=== PATIENT | male | born 1960 | race Caucasian/White ===

== ENCOUNTER 2018-06-06 17:24 | Inpatient (IN) | payer MEDICARE, OTHER ==
[~2018-06-06] VITALS: Ht 177.8 cm; Wt 93.4 kg
[~2018-06-06 17:24] MED LIST: ASPI-817 PO; ATOR40TA68 PO; CARV12.579 PO; CARV12.598 PO; FURO-110 PO; GABA300C PO; GABA300C16 PO; INSU100C SC; INSU100V23 SC; LANT3I SC; NAPR375T PO; NP.1OP15 BOTH EYES; SPIR25TA PO; TRAZ150T65 PO
[2018-06-06] MEDS: SODIUM POLYSTYRENE 15 GM KIT (POWDER + SORBITOL) PO STA ×2 (18:31→19:06)
[2018-06-06] MEDS ORDERED: ALBUTEROL 0.5% (NEB) 2.5 MG/0.5 ML AMP INH STA (18:31)
[2018-06-06] MEDS ORDERED: CA CHLORIDE 10% 10 ML SYRINGE IV STA (18:31)
[2018-06-06] MEDS ORDERED: NA BICARBONATE 8.4% 50 ML SYG IV STA (18:31)
[2018-06-06] MEDS ORDERED: INSULIN REGULAR, HUMAN 100 UNIT/1 ML 3ML VIAL IVP STA (18:31)
--- NOTE | 2018-06-06 18:56 | ERD ---
ER Documentation Chief Complaint Chief Complaint HYPERGLYCEMIA, LAST BLOOD SUGAR 285. MISSED DIALYSIS TODAY. HPI Patient is a 57-year-old male with coronary disease, hypertension, diabetes, and dialysis who presents feeling weak and sick. He feels weak all over. He had subjective fever but did not take his temperature. He feels some midsternal chest pain. He missed dialysis today because he did not feel well. He did have dialysis on Wednesday. Upon review of old medical records this is the patient's third visit to the ER since 2013. ROS All systems reviewed and are negative except as per history of present illness. Medications Home Meds Reported Medications Trazodone Hcl* (Trazodone Hcl*) 150 Mg Tablet, 150 MG PO HS, TAB 12/14/13 Naphazoline Hcl* (Ak-Con*) 0.1% - 15 ML Drops Opht, 1 DROP BOTH EYES BID, EA 12/14/13 Gabapentin* (Neurontin*) 300 Mg Capsule, 300 MG PO TID, CAP 12/14/13 Spironolactone* (Aldactone*) 25 Mg Tablet, 25 MG PO DAILY, TAB 12/14/13 Naproxen* (Naprosyn*) 375 Mg Tablet, 375 MG PO BID, TAB 12/14/13 Aspirin* (Aspirin* EC) 81 Mg Tablet.dr, 81 MG PO DAILY, TAB 12/14/13 Atorvastatin* (Atorvastatin*) 40 Mg Tablet, 40 MG PO HS, TAB 12/14/13 Furosemide* (Lasix*) 20 Mg Tablet, 20 MG PO DAILY, TAB 12/14/13 Insulin Glargine* (Lantus*) 100 Unit/Ml Soln, 30 UNIT SC HS, EA 12/14/13 Insulin Lispro (Humalog) 100 U/Ml Cartridge, 10 UNITS SC TID W/ MEALS, EA 12/14/13 Carvedilol* (Coreg*) 12.5 Mg Tablet, 12.5 MG PO BID, TAB 12/14/13 Insulin Regular, Human* (Novolin R*) 100 U/Ml Vial, 0 SC SLIDING SCALE AC, VIAL 12/13/13 Insulin Glargine* (Lantus*) 100 Unit/Ml Soln, 25 UNIT SC HS, EA 12/13/13 Atorvastatin* (Atorvastatin*) 40 Mg Tablet, 40 MG PO, TAB 12/13/13 Carvedilol* (Carvedilol*) 12.5 Mg Tablet, 12.5 MG PO, TAB 12/13/13 Spironolactone* (Aldactone*) 25 Mg Tablet, 25 MG PO, TAB 12/13/13 Gabapentin* (Gabapentin*) 300 Mg Capsule, 300 MG PO, CAP 12/13/13 Allergies Allergies: Coded Allergies: Amoxicillin (Verified Allergy, Unknown, 12/13/13) PMhx/Soc History of Surgery: Yes (CABG JUNE 2001 & FEB 2013) Anesthesia Reaction: No Hx Neurological Disorder: No Hx Respiratory Disorders: No Hx Alcohol Use: No Hx Substance Use: No Hx Tobacco Use: Yes Smoking Status: Never smoker FmHx Family History: diabetes Physical Exam Vitals Vital Signs Date Temp Pulse Resp B/P (MAP) Pulse Ox O2 O2 Flow FiO2 Time Delivery Rate 06/06/18 98.7 104 20 135/61 88 17:32 (85) Physical Exam Const: No acute distress Head: Atraumatic Eyes: Normal Conjunctiva ENT: Normal External Ears, Nose and Mouth. Neck: Full range of motion. No meningismus. Resp: Clear to auscultation bilaterally Cardio: Tachycardic rate without murmur Abd: Soft, non tender, non distended. Normal bowel sounds Skin: Pale skin Back: No midline or flank tenderness Ext: No cyanosis, or edema Neur: Awake and alert Psych: Normal Mood and Affect Result Diagram: 06/06/187 06/06/181756 Results 24 hrs Laboratory Tests Test 06/06/18 17:30 06/06/18 17:41 06/06/18 17:57 Bedside Glucose 285 mg/dL Blood Gas Specimen Source Blood venous Arterial Blood Date Drawn 06/06/2018 5:55:14 PM Arterial Blood Gas VENOUS LINE Puncture Site Bradley Test N/A Venous Blood pH 7.356 Venous Blood pCO2 52.1 mmHG (Temp Corrected) Venous Blood pO2 19.8 mmHG (Temp Corrected) Venous Blood HCO3 28.5 mmol/L Venous Blood Oxygen 24.4 mmHG Saturation Venous Blood Base Excess 2.4 mmol/L Venous Blood Total 10.0 g/dl Hemoglobin Venous Blood Oxyhemoglobin 23.8 % Venous Blood Methemoglobin 0.7 % Carboxyhemoglobin 1.9 % Blood Gas Temperature 37.0 C Blood Gas Modality ROOM AIR FiO2 21.0 % Blood Gas Critical Value B SHANAE ALCALA Read Back Blood Gas Notified Whom Destinee MAYES TYRE FITTER Blood Gas Notified Time 06/06/2018 6:02:46 PM White Blood Count 15.4 10^3/ul Red Blood Count 3.49 10^6/ul Hemoglobin 9.2 g/dl Hematocrit 31.3 % Mean Corpuscular Volume 89.7 fl Mean Corpuscular Hemoglobin 26.4 pg Mean Corpuscular 29.4 g/dl Hemoglobin Concent Red Cell Distribution Width 17.0 % Platelet Count 309 10^3/UL Mean Platelet Volume 9.0 fl Immature Granulocytes % 0.800 % Neutrophils % 85.2 % Lymphocytes % 6.6 % Monocytes % 6.4 % Eosinophils % 0.5 % Basophils % 0.5 % Nucleated Red Blood Cells % 0.0 /100WBC Immature Granulocytes # 0.130 10^3/ul Neutrophils # 13.1 10^3/ul Lymphocytes # 1.0 10^3/ul Monocytes # 1.0 10^3/ul Eosinophils # 0.1 10^3/ul Basophils # 0.1 10^3/ul Nucleated Red Blood Cells # 0.0 10^3/ul Sodium Level 140 mmol/L Potassium Level 7.4 mmol/L Chloride Level 93 mmol/L Carbon Dioxide Level 26 mmol/L Anion Gap 21 Blood Urea Nitrogen 94 mg/dl Creatinine 9.97 mg/dl Est Glomerular Filtrat 5 mL/min Rate mL/min Glucose Level 259 mg/dl Calcium Level 8.5 mg/dl Phosphorus Level 9.3 mg/dl Magnesium Level 2.4 mg/dl Troponin I 0.182 ng/ml Current Medications Medications Dose Sig/Seamus Start Time Status Last (Trade) Ordered Route PRN Stop Time Admin Dose Reason Admin Sodium 30 gm ONCE STAT 06/06/18 DC Polystyrene PO 18:31 Sulfonate 06/06/18 18:32 (Kayexelate 15 Gm Kit (Powder+Sorbi kimberly)) Albuterol 15 mg ONCE STAT 06/06/18 DC (Proventil INH 18:31 0.5% (Neb)) 06/06/18 18:32 Sodium 50 ml ONCE STAT 06/06/18 DC Bicarbonate IV 18:31 (Na Bicarb 06/06/18 18:32 8.4% Syg) Calcium 1,000 mg ONCE STAT 06/06/18 DC Chloride IV 18:31 (Ca Chloride 06/06/18 18:32 10% Syg) Insulin 10 unit ONCE STAT 06/06/18 DC Human IVP 18:31 Regular 06/06/18 18:32 (Humulin R) Dextrose ONCE PRN 06/06/18 (D50w IV DECREASED 19:00 Syringe) GLUCOSE Aspirin 162 mg ONCE ONCE 06/06/18 (Aspirin) PO 19:00 06/06/18 19:01 Ondansetron 4 mg ER BRIDGE 06/06/18 HCl (Zofran PRN IV 19:00 Inj) NAUSEA/VOMITI 06/07/18 18:59 NG 650 mg ER BRIDGE 06/06/18 Acetaminophen PRN PO 19:00 (Tylenol .MILD PAIN 06/07/18 18:59 Tab) 1-3 OR TEMP Procedures/MDM EKG read by me: Rate/Rhythm: Left bundle branch block with tachycardia Intervals: Normal Impression: Left bundle branch block with tachycardia with peaked T waves consistent with hyperkalemia but negative for Sgarbossa criteria Chest x-ray read by radiology. Smoking Cessation Therapy: Pt. was lectured for greater than 3 minutes on the health risks of continued smoking and the benefits of cessation. Patient is a 57-year-old male with multiple, but he is presents with hyper kalemia. He was found to have a potassium of 7.4 with peaked T waves. He was given calcium, bicarbonate, albuterol, insulin, glucose, and Kayexalate. The patient was also found to have a positive troponin in the setting of chronic renal failure and was given aspirin. The patient will be admitted to the care of Dr. Montez to a telemetry bed. He will need dialysis. Critical Care: Time: 35 minutes excluding all billable procedures. Treatments/Evaluations: Close monitoring and treatment of unstable vital signs, cardiorespiratory, and neurologic status, while maintaining tight balance of fluid, respiratory, and cardiac interventions. Departure Diagnosis: Primary Impression: Hyperkalemia Additional Impression: NSTEMI (non-ST elevated myocardial infarction) Condition: Serious RADHA JOLLY MD Jun 06, 2018 18:56
[2018-06-06] MEDS ORDERED: ONDANSETRON 4 MG INJ IV PRN ×2 (19:00→20:30)
[2018-06-06] MEDS ORDERED: ASPIRIN 81 MG TAB PO ONE (19:00)
[2018-06-06] MEDS ORDERED: ACETAMINOPHEN 325 MG TAB PO PRN ×2 (19:00→20:30)
[2018-06-06] MEDS ORDERED: DEXTROSE 50% 50 ML SYRINGE IV PRN (19:00)
[2018-06-06] MEDS ORDERED: BISACODYL (EC) 5 MG TAB PO PRN (20:30)
[2018-06-06] MEDS ORDERED: morphine 2 MG INJ IV PRN (20:30)
[2018-06-06] MEDS ORDERED: NACL 0.9% 3 ML SYG IV SCH (20:30)
[2018-06-06] MEDS ORDERED: DOCUSATE SODIUM 100 MG CAP PO PRN (20:30)
[2018-06-06] MEDS ORDERED: NITROGLYCERIN (SL) 0.4 MG TAB SL PRN (20:30)
[2018-06-06] MEDS ORDERED: FERR325T5 PO (21:49)
[2018-06-06] MEDS: HEPARIN 5,000 UNIT/1 ML VIAL SC SCH (22:31)
[2018-06-06 23:11] VITALS: PULSE 101
[2018-06-06 23:22] VITALS: Ht 177.8 cm; Wt 93.4 kg
--- NOTE | 2018-06-06 23:48 | HP ---
Date/Time of Note Date/Time of Note DATE: 06/06/18 TIME: 23:48 Assessment/Plan VTE Prophylaxis SCD applied (from Nsg): Yes Pharmacological prophylaxis: NA/contraindicated Pharm contraindication: low risk/ambulating Lines/Catheters IV Catheter Type (from Nrsg): Saline Lock Assessment/Plan Hospital Course This is a 57-year-old male being admitted to the telemetry floor for: #1 chest pain: Rule out ACS versus congestion from volume overload: We will trend cardiac enzymes initial troponin was 0.182. EKG did show peaked T waves and left bundle branch block with a negative scar posterior criteria. Elevated troponin likely in the setting of volume overload and ESRD. Nonetheless we will trend cardiac enzymes. Patient did receive aspirin in the emergency department. Cardiology consultation. Echocardiogram #2 hyperkalemia: With peaked T waves. Patient did receive Kayexalate, albute rol, insulin and dextrose as well as calcium gluconate in the emergency department. Will repeat BMP to assess potassium. Will consult Dr. Ashford for stat hemodialysis. #3 uremia with volume overload: Also with hyperkalemia. Patient did receive treatment for hyperkalemia as per #2. Will consult Dr. Ashford for stat dialysis. Patient reports missed dialysis on Wednesday, he does report that he is compliant. Avoid nephrotoxic agents. Need to confirm patient's home medications #4 diabetes mellitus: We will need to confirm patient's home medications, will check hemoglobin A1c, insulin sliding scale #5 coronary artery disease: Again we will need to confirm patient's home medications and resume #6 tobacco use: Nicotine patch #7: Normocytic anemia: Likely secondary to underlying end-stage renal disease. No signs of bleeding. Further management as per nephro. #8 DVT GI prophylaxis: SCDs, no GI prophylaxis indicated Further treatment strategy will be implemented as per the clinical course. Result Diagram: 06/06/18 1757 06/06/187 Results 24hrs Laboratory Tests Test 06/06/18 17:30 06/06/18 17:41 06/06/18 17:57 06/06/18 18:50 Bedside Glucose 285 H 239 H Blood Gas Blood venous Specimen Source Arterial Blood 06/06/2018 5:55:1 Date Drawn 4 PM Arterial Blood VENOUS LINE Gas Puncture Site Bradley Test N/A Venous Blood pH 7.356 Venous Blood pCO2 52.1 H (Temp Corrected) Venous Blood pO2 19.8 L (Temp Corrected) Venous Blood HCO3 28.5 Venous Blood 24.4 L Oxygen Saturation Venous Blood Base 2.4 Excess Venous Blood 10.0 Total Hemoglobin Venous Blood 23.8 Oxyhemoglobin Venous Blood 0.7 Methemoglobin Carboxyhemoglobin 1.9 Blood Gas 37.0 Temperature Blood Gas ROOM AIR Modality FiO2 21.0 Blood Gas B SHANAE ALCALA Critical Value Read Back [facility] Notified Whom Blood Gas 06/06/2018 6:02:4 Notified Time 6 PM White Blood Count 15.4 #H Red Blood Count 3.49 L Hemoglobin 9.2 #L Hematocrit 31.3 L Mean Corpuscular 89.7 Volume Mean Corpuscular 26.4 L Hemoglobin Mean Corpuscular 29.4 L Hemoglobin Concen t Red Cell 17.0 #H Distribution Width Platelet Count 309 Mean Platelet 9.0 # Volume Immature 0.800 H Granulocytes % Neutrophils % 85.2 H Lymphocytes % 6.6 L Monocytes % 6.4 Eosinophils % 0.5 Basophils % 0.5 Nucleated Red 0.0 Blood Cells % Immature 0.130 H Granulocytes # Neutrophils # 13.1 H Lymphocytes # 1.0 Monocytes # 1.0 H Eosinophils # 0.1 Basophils # 0.1 Nucleated Red 0.0 Blood Cells # Sodium Level 140 Potassium Level 7.4 *H Chloride Level 93 L Carbon Dioxide 26 Level Anion Gap 21 H Blood Urea 94 H Nitrogen Creatinine 9.97 H Est Glomerular 5 L Filtrat Rate mL/min Glucose Level 259 H Calcium Level 8.5 Phosphorus Level 9.3 H Magnesium Level 2.4 Troponin I 0.182 *H Test 06/06/18 19:46 06/06/18 21:37 Bedside Glucose 269 H Sodium Level 140 Potassium Level 6.5 *H Chloride Level 95 L Carbon Dioxide 25 Level Anion Gap 20 H Blood Urea 99 H Nitrogen Creatinine 10.07 H Est Glomerular 5 L Filtrat Rate mL/min Glucose Level 213 Calcium Level 8.7 Creatine Kinase 58 Creatine Kinase 6.9 Index Creatinine Kinase 4.00 H MB (Mass) Troponin I 0.159 *H HPI/ROS Admit Date/Time Admit Date/Time Jun 06, 2018 at 18:49 Hx of Present Illness Chief complaint: Weakness and feeling sick This is a 57-year-old male with coronary disease, hypertension, diabetes, and end-stage renal disease dialysis Wednesday who presents feeling weak and sick. He feels weak all over. He had subjective fever but did not take his temperature. He feels some midsternal chest pain. He missed dialysis today because he did not feel well. He did have dialysis on Wednesday. Allergies: Amoxicillin Medications: See APR JAILENE Const: As per HPI Eyes : No pain discharge or redness or change in visual acuity ENT: No pain, sore throat, congestion, congestion, dysphagia or discharge Respiratory: As per HPI Cardiovascular: As per HPI GI : no change in appetite, abdominal pain, nausea, vomiting, diarrhea, constipation, or change in the color his stool Genitourinary: No dysuria, hematuria, flank pain , discharge or CVA tenderness Musculoskeletal: No joint pain, back pain, neck pain, restricted range of motion in neck or joints Skin: No rash, bruising or hives Neuro: No headache, dizziness, syncope, seizure, focal weakness Endocrine: No polyuria, polydipsia, temperature intolerance Psych: No hallucination, depression, anxiety or suicidal ideation PMH/Family/Social Past Medical History Diabetes mellitus, end-stage renal disease on hemodialysis Wednesday was a Wednesday, coronary artery disease, hypertension Medications Current Medications Dextrose (D50w Syringe) ONCE PRN IV DECREASED GLUCOSE Last administered on 06/06/18at 19:08; Admin Dose 50 ML; Start 06/06/18 at 19:00 IV Flush (NS 3 ml) 3 ml PER PROTOCOL IV ; Start 06/06/18 at 20:30 Ondansetron HCl (Zofran Inj) 4 mg Q6H PRN IV NAUSEA/VOMITING; Start 06/06/18 at 20:30 Nitroglycerin (Nitroglycerin (Sl Tab) 0.4 Mg) 1 tab Q5M PRN SL .CHEST PAIN; Start 06/06/18 at 20:30 Acetaminophen (Tylenol Tab) 650 mg Q6H PRN PO .PAIN 1-3 OR TEMP; Start 06/06/18 at 20:30 Morphine Sulfate (morphine) 2 mg Q4H PRN IV .PAIN 7-10; Start 06/06/18 at 20:30 Docusate Sodium (Colace) 100 mg Q12H PRN PO .CONSTIPATION; Start 06/06/18 at 20:30 Bisacodyl (Dulcolax) 5 mg DAILY PRN PO .CONSTIPATION; Start 06/06/18 at 20:30 Heparin Sodium (Porcine) (Heparin (5000 Units/1ml)) 5,000 unit Q8 SC Last ad ministered on 06/06/18at 22:31; Admin Dose 5,000 UNIT; Start 06/06/18 at 22:00 Coded Allergies: amoxicillin (Unverified Allergy, Unknown, 06/06/18) Past Surgical History Right chest permacath, left upper extremity AV fistula Family History Significant Family History: no pertinent family hx Social History Alcohol Use: none Smoking Status: Current every day smoker (1 pack/day) Drug Use: none Exam/Review of Systems Vital Signs Vitals Vital Signs Date Temp Pulse Resp B/P (MAP) Pulse Ox O2 O2 Flow FiO2 Time Delivery Rate 06/06/18 101 23:11 06/06/18 98.8 20 91/47 (62) 100 Nasal 2.0 22:00 Cannula Exam Exam General: Patient is currently lying in bed, he does not appear to be in any acute distress, but he does appear lethargic HEENT: Atraumatic, normocephalic. The pupils are equal, round and reactive. Extraocular motor are intact Neck: Supple with full range of motion. No rigidity or meningismus Chest: Nontender, right chest permacath with Lungs: Coarse breath sounds/rales bilaterally, nonlabored breathing Heart: Normal S1-S2, Regular rhythm and rate. Abdomen: Soft , nontender, nondistended , bowel sounds are present. No guarding no rebound tenderness , No masses or organomegaly. No costovertebral temporal angle mass Extremities: Left upper extremity AV fistula Neurologic: Normal mental status, speech normal, cranial nerves II through XII are intact, motor and sensory are intact, Additional Comments PROCEDURE: XR Chest. CLINICAL INDICATION: hyperglycemia TECHNIQUE: Single portable view of the chest was obtained COMPARISON: 12/13/13 FINDINGS: There is moderate cardiomegaly. The patient is status post CABG. There is a right-sided Perma-Cath in place. There is mild pulmonary vascular congestion. There are bilateral perihilar and lower lobe increased interstitial changes. There is no pleural effusion.. There is no pneumothorax. RPTAT: AA IMPRESSION: Moderate cardiomegaly with pulmonary vascular congestion. .Jossue Ramirez MD, Date Time Electronically viewed and signed by .Jossue Ramirez MD, on 06/06/2018 18:06 .S/ CC: RADHA JOLLY MD [id number] EKG read by me: Rate/Rhythm: Left bundle branch block with tachycardia Intervals: Normal Impression: Left bundle branch block with tachycardia with peaked T waves consistent with hyperkalemia but negative for Sgarbossa criteria GARRICK SOLANO Jun 06, 2018 23:48
[2018-06-07] VITALS (22 sets, daily range): BP systolic 95–131; BP diastolic 45–63; PULSE 87–104; RESP 15–19
[2018-06-07] MEDS ORDERED: ALBUTEROL 0.083% (NEB) 2.5 MG/3 ML AMP HHN STA (02:26)
[2018-06-07] MEDS ORDERED: ALBUMIN HUMAN 25% 100 ML IV ONE (03:00)
[2018-06-07] MEDS ORDERED: DEXTROSE 50% 50 ML SYRINGE IV PRN ×2 (04:30)
[2018-06-07] MEDS ORDERED: GLUCOSE GEL 15 GRAM TUBE BUCCAL PRN (04:30)
[2018-06-07] MEDS ORDERED: GLUCAGON 1 MG INJ IM PRN (04:30)
[2018-06-07] MEDS ORDERED: GLUCOSE GEL 15 GRAM TUBE PO PRN ×2 (04:30)
[2018-06-07] MEDS: HEPARIN 5,000 UNIT/1 ML VIAL SC SCH ×3 (05:46→22:22)
[2018-06-07] MEDS: HEPARIN 1000 UNITS/ML 10 ML INJ CATHETER SCH (07:21)
[2018-06-07] MEDS: NICOTINE (14 MG/24 HR) PATCH TRANSDERM SCH (08:11)
[2018-06-07] MEDS: INSULIN ASPART [NOVOLOG] 3 ML PEN SC SCH ×4 (08:11→20:29)
--- NOTE | 2018-06-07 09:36 | PN ---
DATE: 06/07/2018 Canceled dictation. Dictated By: LIBBY GUIDRY/SAAD Conf#: [id number] DID#: [id number]
--- NOTE | 2018-06-07 09:47 | CONS ---
DATE OF ADMISSION: 06/06/2018 DATE OF CONSULTATION: 06/07/2018 TYPE OF CONSULTATION: Nephrology. REASON FOR CONSULTATION: End-stage renal disease. PHYSICIAN REQUESTING CONSULT: Dr. Solano. HISTORY OF PRESENT ILLNESS: This is a 57-year-old male with a past medical history of end-stage april l disease on dialysis Wednesday, Wednesday, Wednesday with access is Perm-A-Cath. The patient's primary ne phrologist is unknown. The patient does not remember. The patient also has a history of hypertensio n, history of coronary artery disease, history of diabetes, who presents to [facility] with feeling weakness and sickness. The patient upon arrival to the emergency room had laborator y data drawn. The patient is noted to have a potassium level of 7.4. In the emergency room, the pat ient was given calcium gluconate, Kayexalate, insulin, albuterol. The patient was then subsequently admitted to telemetry for evaluation. In terms of patient's renal history, the patient is on dialysis Wednesday, Wednesday, and Wednesday. The p atmadelin states his last dialysis was on Wednesday. 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 The patient denies any hemoptysis, hematemesis, or hematochezia. PAST MEDICAL HISTORY: Stated above, history of end-stage renal disease, history of anemia, history o f diabetes, history of coronary artery disease. PAST SURGICAL HISTORY: Status post Perm-A-Cath placement. ALLERGIES: AMOXICILLIN. FAMILY HISTORY: No family history of kidney disease. MEDICATIONS: The patient's medications have been reviewed. SOCIAL HISTORY: Positive for tobacco use. Laboratory data was reviewed. REVIEW OF SYSTEMS: A 14-point review of systems was conducted. Pertinent positives stated in HPI, o therwise negative. PHYSICAL EXAMINATION: VITAL SIGNS: Blood pressure is 122/45, respirations 19, pulse 87, temperature 98.0. HEENT: Head is normocephalic. NECK: Supple. HEART: Regular rate. LUNGS: Show diminished breath sounds at the base. ABDOMEN: Soft, nontender to palpation without rebound or guarding. EXTREMITIES: Negative for clubbing, cyanosis, no edema. DERMATOLOGIC: No rashes. MUSCULOSKELETAL: No joint effusion. NEUROLOGIC: No change in exam. LABORATORY DATA: Reviewed. IMAGING STUDIES: Reviewed. ASSESSMENT AND PLAN: This is a 57-year-old male who presents with: 1. End-stage renal disease. The patient had urgent hemodialysis today dialyze for 3.5 hours on 2k b ath, calcium 2.5. Plan is for hemodialysis again tomorrow. 2. Hyperkalemia, will be dialyzed on low potassium bath. Continue renal diet. 3. Mineral bone disorder. Continue to monitor calcium and phosphorus levels. The patient will be s tarted on phosphate binders. 4. Anemia. Monitor hemoglobin and hematocrit levels. Continue Epogen. Check iron panel. 5. Uremia. Continue hemodialysis. 6. Chest pain. The patient was noted to have elevated troponin being ruled out for acute coronary a rtery syndrome. Continue current medical management. Follow up 2D echo, trend troponins. Follow up with cardiology. 7. History of coronary artery disease. Continue current medical management. 8. Diabetes. Continue Accu-Cheks and insulin sliding scale. 9. Tobacco use. Continue nicotine patch. 10. General weakness. Etiology is multifactorial in part due to hyperkalemia. Continue to monitor. Continue hemodialysis. Thank you, Dr. Solano, for this interesting consult. It will be a pleasure to follow the patient wi th you throughout the hospital course. Dictated By: LIBBY LOVE DO NR/NTS Conf#: [id number] DID#: [id number] CC: MARTY WHIPPLE MD; GARRICK SOLANO MD; LIBBY LOVE DO;*EndCC*
--- NOTE | 2018-06-07 10:27 | RADRPT ---
Echocardiogram Report Patient Name: PATRICIO MCKEONPatient ID: [id number] : 05 (57y 11m)Study Date: 06/07/2018 7:31:41 AM Gender: MAccession #: [id number] Tech: Adolph Weaver PINKY Location: 506 Ref.Physician: GARRICK SOLANO Height(Cm): BSA: Weight(Kg): Quality: AdequateAccount #: Procedures: Echocardiographic Report: Transthoracic echocardiogram with complete 2D, M-Mode, and doppler examination. Indications: NSTEMI. Measurements: 2D/M Mode Doppler Measurement Value Normal Range Measurement Value Normal Range LVIDd 2D 4.8 [ 4.2 - 5.8 ] cm AV Peak Alexis 1.3 [ 100.0 - 170.0 ] cm/sec LVIDs 2D 3.8 [ 2.5 - 4.0 ] cm AV Peak PG 7.0 [ 2.0 - 9.0 ] mmHg LVPWd 2D 1.3 [ 0.6 - 1.0 ] cm LVOT Peak Alexis 1.0 [ 70.0 - 110.0 ] cm/sec IVSd 2D 1.2 [ 0.6 - 1.0 ] cm LVOT Peak PG 4.0 [ 2.0 - 6.0 ] mmHg AoR Diam 2D 3.3 [ 2.6 - 3.4 ] cm Lat E` Alexis 0.1 [ 10.0 - 15.0 ] cm/sec EDV 2D 106.0 [ 62.0 - 150.0 ] ml TR Peak Alexis 2.6 [ 100.0 - 280.0 ] cm/sec ESV 2D 62.7 [ 21.0 - 61.0 ] ml TR Peak PG 28.0 mmHg EF 2D 40.8 [ 52.0 - 72.0 ] percent RVSP 38.0 [ 10.0 - 36.0 ] mmHg LA Dimen 2D 4.8 [ 3.0 - 4.0 ] cm RA Pressure 10.0 mmHg Findings: Left Ventricle: Normal left ventricular cavity size. Mild concentric left ventricular hypertrophy. Moderate global left ventricular systolic dysfunction. Ejection fraction is visually estimated at 35 %. Abnormal Diastolic Function. Right Ventricle: Normal right ventricular size. Normal right ventricular systolic function. Left Atrium: There is moderate enlargement of left atrium. Right Atrium: The right atrium is normal in size. Mitral Valve: Mild mitral leaflet calcification. Mild mitral annular calcification. Mild mitral valve regurgitation. Aortic Valve: No significant aortic stenosis or insufficiency. Aortic cusps appear mildly calcified. Tricuspid Valve: Normal appearance of the tricuspid valve. Estimated peak PA systolic pressure 38 mmHg. There is trace tricuspid regurgitation. Pulmonic Valve: Pulmonic valve not well visualized. There is trace pulmonic regurgitation. Pericardium: Normal pericardium with no significant pericardial effusion. Aorta: Normal aortic root. IVC: Normal size and normal respiratory collapse consistent with normal right atrial pressure. Conclusions: Normal left ventricular cavity size. Mild concentric left ventricular hypertrophy. Moderate global left ventricular systolic dysfunction. Ejection fraction is visually estimated at 35 %. Abnormal Diastolic Function. There is moderate enlargement of left atrium. Mild mitral leaflet calcification. Mild mitral annular calcification. Mild mitral valve regurgitation. No significant aortic stenosis or insufficiency. Aortic cusps appear mildly calcified. Normal appearance of the tricuspid valve. Estimated peak PA systolic pressure 38 mmHg. There is trace tricuspid regurgitation. Electronically Signed By: Jaguar Prieto 2018-06-07 10:26:54 PDT
--- NOTE | 2018-06-07 10:54 | CONS ---
Assessment/Plan Assessment/Plan Hospital Course (Demo Recall) 1. Mildly abnormal troponin: Probably secondary to non-ST elevation myocardial infarction type II due to fluid overload/renal failure/central versus acute [place]. 2. Coronary artery disease status post [place] status post chronic bypass graft status post PCI 3. Congestive heart failure: Acute on chronic secondary to underlying severe LV dysfunction/systolic dysfunction in addition to the fluid overload secondary to noncompliance with hemodialysis 4. Ischemic cardiomyopathy 5. Anemia 6. Hypertension 7. Dyslipidemia 8. Smoker 9. Diabetes 10. Hyperkalemia Recommendation: Continue with aspirin/antiplatelet agents. Normally Effient is not used in patient with dialysis. However he has been on it previously by his director of events and has not had any complication. Therefore we will continue with rate and switching it to have with outpatient follow-up with his regular director of events. We will start the patient on the beta-jourdan Statin Ischemic work-up was recommended to the patient including stress testing however is adamantly refusing. He was advised to stop smoking however again he does not appear to be compliant with it Hemodialysis as per renal Thank you for his referral. I will continue to follow along with you AURELIO REYNAGA MD [facility] Consultation Date/Type/Reason Admit Date/Time Jun 06, 2018 at 18:49 Date of Consultation: Jun 07, 2018 Type of Consult Cardiology Reason for Consultation + trop Requesting Provider: GARRICK SOLANO Date/Time of Note DATE: 06/07/18 TIME: 10:45 Hx of Present Illness Interventional cardiology consultation note Chief complaint: not feeling well Reason for consult: +trop History of present illness: Thank you for this referral. History was obtained from the patient was a fair historian and review of the chart review of the ulcer discussion physician staff This is a 57-year-old [place] gentleman with history of coronary artery disease status post bypass surgery as well as PCI, renal failure on dialysis who has missed his dialysis and came to emergency room because of not feeling well. Patient was noted to be fluid overload and severely hyperkalemic. He denies any left-sided chest pain or pressure to me but has had mildly abnormal troponin for which I was kindly asked to evaluate and treat. Patient also complains of shortness of breath which is improved slightly since he had his dialysis this morning Allergies: Amoxicillin Medications she does not remain Allbee but stated he takes aspirin and Effient Family history: Father with [place] Social history: Smokes Past medical history: The artery disease status post [place], status post four-vessel coronary bypass grafting 2013, status post multiple PCI apparently 3 PCI after his bypass surgery most recent month has been within the past year at [facility], renal failure on dialysis, diabetes, hypertension, dyslipidemia, congestive heart failure Review of system: Patient denies all others except for above-mentioned Past Medical History Home Meds Reported Medications Ferrous Sulfate (Ferrous Sulfate) 325 Mg Tablet.dr, 325 MG PO DAILY for 30 Days, #30 06/06/18 Discontinued Reported Medications Trazodone Hcl* (Trazodone Hcl*) 150 Mg Tablet, 150 MG PO HS, TAB 12/14/13 Naphazoline Hcl* (Ak-Con*) 0.1% - 15 ML Drops Opht, 1 DROP BOTH EYES BID, EA 12/14/13 Gabapentin* (Neurontin*) 300 Mg Capsule, 300 MG PO TID, CAP 12/14/13 Spironolactone* (Aldactone*) 25 Mg Tablet, 25 MG PO DAILY, TAB 12/14/13 Naproxen* (Naprosyn*) 375 Mg Tablet, 375 MG PO BID, TAB 12/14/13 Aspirin* (Aspirin* EC) 81 Mg Tablet.dr, 81 MG PO DAILY, TAB 12/14/13 Atorvastatin* (Atorvastatin*) 40 Mg Tablet, 40 MG PO HS, TAB 12/14/13 Furosemide* (Lasix*) 20 Mg Tablet, 20 MG PO DAILY, TAB 12/14/13 Insulin Glargine* (Lantus*) 100 Unit/Ml Soln, 30 UNIT SC HS, EA 12/14/13 Insulin Lispro (Humalog) 100 U/Ml Cartridge, 10 UNITS SC TID W/ MEALS, EA 12/14/13 Carvedilol* (Coreg*) 12.5 Mg Tablet, 12.5 MG PO BID, TAB 12/14/13 Insulin Regular, Human* (Novolin R*) 100 U/Ml Vial, 0 SC SLIDING SCALE AC, VIAL 12/13/13 Insulin Glargine* (Lantus*) 100 Unit/Ml Soln, 25 UNIT SC HS, EA 12/13/13 Atorvastatin* (Atorvastatin*) 40 Mg Tablet, 40 MG PO, TAB 12/13/13 Carvedilol* (Carvedilol*) 12.5 Mg Tablet, 12.5 MG PO, TAB 12/13/13 Spironolactone* (Aldactone*) 25 Mg Tablet, 25 MG PO, TAB 12/13/13 Gabapentin* (Gabapentin*) 300 Mg Capsule, 300 MG PO, CAP 12/13/13 Medications Current Medications Dextrose (D50w Syringe) ONCE PRN IV DECREASED GLUCOSE Last administered on at 19:08; Admin Dose 50 ML; Start 06/06/18 at 19:00 IV Flush (NS 3 ml) 3 ml PER PROTOCOL IV ; Start 06/06/18 at 20:30 Ondansetron HCl (Zofran Inj) 4 mg Q6H PRN IV NAUSEA/VOMITING; Start 06/06/18 at 20:30 Nitroglycerin (Nitroglycerin (Sl Tab) 0.4 Mg) 1 tab Q5M PRN SL .CHEST PAIN; Start 06/06/18 at 20:30 Acetaminophen (Tylenol Tab) 650 mg Q6H PRN PO .PAIN 1-3 OR TEMP; Start 06/06/18 at 20:30 Morphine Sulfate (morphine) 2 mg Q4H PRN IV .PAIN 7-10; Start 06/06/18 at 20:30 Docusate Sodium (Colace) 100 mg Q12H PRN PO .CONSTIPATION; Start 06/06/18 at 20:30 Bisacodyl (Dulcolax) 5 mg DAILY PRN PO .CONSTIPATION; Start 06/06/18 at 20:30 Heparin Sodium (Porcine) (Heparin (5000 Units/1ml)) 5,000 unit Q8 SC Last administered on 06/07/18at 05:46; Admin Dose 5,000 UNIT; Start 06/06/18 at 22:00 Heparin Sodium (Porcine) (Heparin (1000 Units/ml)) 3,200 unit AFTER DIALYSIS CATHETER Last administered on 06/07/18at 07:21; Admin Dose 3,200 UNIT; Start 06/07/18 at 04:00 Insulin Aspart (Novolog Insulin Pen) NOVOLOG *MILD* ALGORITHM WITH MEALS BEDTIME SC Last administered on 06/07/18at 08:11; Admin Dose 1 UNIT; Start 06/07/18 at 07:55 Miscellaneous Information 1 ea NOTE XX ; Start 06/07/18 at 04:30 Glucose (Glutose) 15 gm Q15M PRN PO DECREASED GLUCOSE; Start 06/07/18 at 04:30 Glucose (Glutose) 22.5 gm Q15M PRN PO DECREASED GLUCOSE; Start 06/07/18 at 04:30 Dextrose (D50w Syringe) 25 ml Q15M PRN IV DECREASED GLUCOSE; Start 06/07/18 at 04:30 Dextrose (D50w Syringe) 50 ml Q15M PRN IV DECREASED GLUCOSE; Start 06/07/18 at 04:30 Glucagon (Glucagen) 1 mg Q15M PRN IM DECREASED GLUCOSE; Start 06/07/18 at 04:30 Glucose (Glutose) 15 gm Q15M PRN BUCCAL DECREASED GLUCOSE; Start 06/07/18 at 04:30 Nicotine (Nicoderm 14 Mg/ 24hr) 1 patch DAILY TRANSDERM Last administered on 06/07/18at 08:11; Admin Dose 1 PATCH; Start 06/07/18 at 09:00 Allergies: Coded Allergies: amoxicillin (Unverified Allergy, Unknown, 06/06/18) Social History Alcohol Use: none Smoking Status: Current every day smoker (1 pack/day) Drug Use: none Exam/Review of Systems Vital Signs Vitals Vital Signs Date Temp Pulse Resp B/P (MAP) Pulse Ox O2 O2 Flow FiO2 Time Delivery Rate 06/07/18 92 08:21 06/07/18 98.0 19 122/45 95 07:14 (70) 06/07/18 Nasal 2.0 03:30 Cannula 06/07/18 32 02:59 Intake and Output 06/06/18 06/06/18 06/07/18 1515:00 23:00 07:00 IntakeIntake Total 340 ml OutputOutput Total 3400 ml BalanceBalance -3060 ml Exam Exam General: Appears older than stated age. Mildly dyspneic HEENT: NC/AT. pupils are equal. round. NECK: no stridor. CV: RRR. systolic murmur; no gallop or rubs. PULM: no wheezing +rhonchi. GI: SOFT, NT, ND, no rebound or guarding Extremity: trace B/L LE edema. no clubbing. neuro: awake and alert, OX3. Psych: Blunted affect rectal: deferred EKG was personally reviewed which show normal sinus rhythm anteroseptal infarct age indeterminant inferior infarct age undetermined nonspecific ST-T wave abnormality Chest x-ray shows: Moderate cardiomegaly with pulmonary vascular congestion. Labs Result Diagram: 06/07/18 0327 06/07/18 0735 Results 24hrs Laboratory Tests Test 06/06/18 17:30 06/06/18 17:41 06/06/18 17:57 06/06/18 18:50 Bedside Glucose 285 H 239 H Blood Gas Blood venous Specimen Source Arterial Blood 06/06/2018 5:55:1 Date Drawn 4 PM Arterial Blood VENOUS LINE Gas Puncture Site Bradley Test N/A Venous Blood pH 7.356 Venous Blood pCO2 52.1 H (Temp Corrected) Venous Blood pO2 19.8 L (Temp Corrected) Venous Blood HCO3 28.5 Venous Blood 24.4 L Oxygen Saturation Venous Blood Base 2.4 Excess Venous Blood 10.0 Total Hemoglobin Venous Blood 23.8 Oxyhemoglobin Venous Blood 0.7 Methemoglobin Carboxyhemoglobin 1.9 Blood Gas 37.0 Temperature Blood Gas ROOM AIR Modality FiO2 21.0 Blood Gas B SHANAE ALCALA Critical Value Read Back Blood Gas T [facility] Notified Whom Blood Gas 06/06/2018 6:02:4 Notified Time 6 PM White Blood Count 15.4 #H Red Blood Count 3.49 L Hemoglobin 9.2 #L Hematocrit 31.3 L Mean Corpuscular 89.7 Volume Mean Corpuscular 26.4 L Hemoglobin Mean Corpuscular 29.4 L Hemoglobin Concen t Red Cell 17.0 #H Distribution Width Platelet Count 309 Mean Platelet 9.0 # Volume Immature 0.800 H Granulocytes % Neutrophils % 85.2 H Lymphocytes % 6.6 L Monocytes % 6.4 Eosinophils % 0.5 Basophils % 0.5 Nucleated Red 0.0 Blood Cells % Immature 0.130 H Granulocytes # Neutrophils # 13.1 H Lymphocytes # 1.0 Monocytes # 1.0 H Eosinophils # 0.1 Basophils # 0.1 Nucleated Red 0.0 Blood Cells # Sodium Level 140 Potassium Level 7.4 *H Chloride Level 93 L Carbon Dioxide 26 Level Anion Gap 21 H Blood Urea 94 H Nitrogen Creatinine 9.97 H Est Glomerular 5 L Filtrat Rate mL/min Glucose Level 259 H Calcium Level 8.5 Phosphorus Level 9.3 H Magnesium Level 2.4 Troponin I 0.182 *H Test 06/06/18 19:46 06/06/18 21:37 06/07/18 03:27 06/07/18 07:35 Bedside Glucose 269 H Sodium Level 140 140 139 Potassium Level 6.5 *H 6.4 *H 4.5 Chloride Level 95 L 94 L 98 Carbon Dioxide 25 27 26 Level Anion Gap 20 H 19 H 15 H Blood Urea 99 H 96 H 41 #H Nitrogen Creatinine 10.07 H 10.10 H 5.02 #H Est Glomerular 5 L 5 L 12 L Filtrat Rate mL/min Glucose Level 213 237 H 146 # Calcium Level 8.7 8.2 L 9.0 Creatine Kinase 58 51 Creatine Kinase 6.9 7.1 Index Creatinine Kinase 4.00 H 3.63 H MB (Mass) Troponin I 0.159 *H 0.149 *H White Blood Count 9.8 # Red Blood Count 2.81 L Hemoglobin 7.3 #L Hematocrit 25.0 #L Mean Corpuscular 89.0 Volume Mean Corpuscular 26.0 L Hemoglobin Mean Corpuscular 29.2 L Hemoglobin Concen t Red Cell 16.9 H Distribution Width Platelet Count 209 # Mean Platelet 8.9 Volume Immature 0.900 H Granulocytes % Neutrophils % 80.8 H Lymphocytes % 9.4 L Monocytes % 7.4 Eosinophils % 0.8 Basophils % 0.7 Nucleated Red 0.0 Blood Cells % Immature 0.090 H Granulocytes # Neutrophils # 7.9 H Lymphocytes # 0.9 Monocytes # 0.7 Eosinophils # 0.1 Basophils # 0.1 Nucleated Red 0.0 Blood Cells # Hemoglobin A1c 7.3 H Magnesium Level 2.3 Total Bilirubin 0.0 L 0.4 Direct Bilirubin 0.00 0.00 Indirect 0.0 0.4 Bilirubin Aspartate Amino 10 L 14 L Transf (AST/SGOT) Alanine 13 9 L Aminotransferase (ALT/SGPT) Alkaline 100 127 H Phosphatase Total Protein 6.7 7.6 Albumin 4.1 4.6 Globulin 2.60 3.00 Albumin/Globulin 1.57 1.53 Ratio Triglycerides 168 H Level Cholesterol Level 151 LDL Cholesterol, 78 Calculated HDL Cholesterol 39 Cholesterol/HDL 3.8 Ratio Thyroid 0.819 Stimulating Hormone (TSH) Hepatitis B NEGATIVE Surface Antigen Test 06/07/18 08:10 Bedside Glucose 150 Medications Medications Current Medications Dextrose (D50w Syringe) ONCE PRN IV DECREASED GLUCOSE Last administered on 06/06/18at 19:08; Admin Dose 50 ML; Start 06/06/18 at 19:00 IV Flush (NS 3 ml) 3 ml PER PROTOCOL IV ; Start 06/06/18 at 20:30 Ondansetron HCl (Zofran Inj) 4 mg Q6H PRN IV NAUSEA/VOMITING; Start 06/06/18 at 20:30 Nitroglycerin (Nitroglycerin (Sl Tab) 0.4 Mg) 1 tab Q5M PRN SL .CHEST PAIN; Start 06/06/18 at 20:30 Acetaminophen (Tylenol Tab) 650 mg Q6H PRN PO .PAIN 1-3 OR TEMP; Start 06/06/18 at 20:30 Morphine Sulfate (morphine) 2 mg Q4H PRN IV .PAIN 7-10; Start 06/06/18 at 20:30 Docusate Sodium (Colace) 100 mg Q12H PRN PO .CONSTIPATION; Start 06/06/18 at 20:30 Bisacodyl (Dulcolax) 5 mg DAILY PRN PO .CONSTIPATION; Start 06/06/18 at 20:30 Heparin Sodium (Porcine) (Heparin (5000 Units/1ml)) 5,000 unit Q8 SC Last administered on 06/07/18at 05:46; Admin Dose 5,000 UNIT; Start 06/06/18 at 22:00 Heparin Sodium (Porcine) (Heparin (1000 Units/ml)) 3,200 unit AFTER DIALYSIS CATHETER Last administered on 06/07/18at 07:21; Admin Dose 3,200 UNIT; Start 06/07/18 at 04:00 Insulin Aspart (Novolog Insulin Pen) NOVOLOG *MILD* ALGORITHM WITH MEALS BEDTIME SC Last administered on 06/07/18at 08:11; Admin Dose 1 UNIT; Start 06/07/18 at 07:55 Miscellaneous Information 1 ea NOTE XX ; Start 06/07/18 at 04:30 Glucose (Glutose) 15 gm Q15M PRN PO DECREASED GLUCOSE; Start 06/07/18 at 04:30 Glucose (Glutose) 22.5 gm Q15M PRN PO DECREASED GLUCOSE; Start 06/07/18 at 04:30 Dextrose (D50w Syringe) 25 ml Q15M PRN IV DECREASED GLUCOSE; Start 06/07/18 at 04:30 Dextrose (D50w Syringe) 50 ml Q15M PRN IV DECREASED GLUCOSE; Start 06/07/18 at 04:30 Glucagon (Glucagen) 1 mg Q15M PRN IM DECREASED GLUCOSE; Start 06/07/18 at 04:30 Glucose (Glutose) 15 gm Q15M PRN BUCCAL DECREASED GLUCOSE; Start 06/07/18 at 04:30 Nicotine (Nicoderm 14 Mg/ 24hr) 1 patch DAILY TRANSDERM Last administered on 06/07/18at 08:11; Admin Dose 1 PATCH; Start 06/07/18 at 09:00 AURELIO REYNAGA MD Jun 07, 2018 10:54
[2018-06-07] MEDS ORDERED: CARV3.1260 PO (11:53)
[2018-06-07] MEDS ORDERED: ATOR40TA68 PO (11:53)
[2018-06-07] MEDS ORDERED: PRAS10TA6 PO (11:53)
[2018-06-07] MEDS ORDERED: ASPI-1044 PO (11:53)
--- NOTE | 2018-06-07 11:55 | PDOCDIS ---
Discharge Instructions DIAGNOSIS Discharge Diagnosis Missed dialysis CONDITION [id number] Patient Condition: [id number] Fair HOME CARE INSTRUCTIONS: [id number] Diet Instructions: [id number] Reduced Sodium ACTIVITY: [id number] Activity Restrictions: [id number] No Restrictions FOLLOW UP/APPOINTMENTS Follow-up Plan 1. Continue taking all medications as prescribed. 2. Continue dialysis as scheduled. 3. See your primary care doctor in 1-2 weeks. 4. Return to the emergency room if you develop pressure-like chest pain that does not resolve with rest, or if you miss dialysis again. MARTY WHIPPLE MD Jun 07, 2018 11:55
[2018-06-07] MEDS ORDERED: GABA300C16 PO (13:15)
[2018-06-07] MEDS: ASPIRIN (EC) 81 MG TAB PO SCH (13:18)
--- NOTE | 2018-06-07 16:18 | PN ---
Date/Time of Note Date/Time of Note DATE: 06/07/18 TIME: 16:06 Assessment/Plan VTE Prophylaxis Risk score (from Nsg)>0 risk: 4 SCD applied (from Nsg): Yes Pharmacological prophylaxis: NA/contraindicated Pharm contraindication: low risk/ambulating Lines/Catheters IV Catheter Type (from Nrsg): Saline Lock Urinary Cath still in place: No Assessment/Plan Assessment/Plan 57 yo man with ESRD on dialysis who presents with missed dialysis #ESRD #Hyperkalemia - resolved. #Uremia - resolved - Dr. Ashford consulted. - Continue dialysis as scheduled. #Hand ulcers. - Reports hand ulcers have been present for "months" - On my exam there is some surrounding erythema and pain with hand flexion. - PCN allergy otherwise I'd do zosyn. Will start clindamycin and see if it helps. #Chest pain - Resolved after dialysis. - Patient offered stress test for ischemic workup but he refused. #Diabetes - Insulin sliding scale. #Tobacco use - Nicotine patch #Failure to thrive - According to friend he has frequent falls at home; and possibly is unable to care for self. - Currently lives home alone. Introduced the idea of SNF; patient refuses. - Will get PT/OT eval to determine level of care. # DVT GI prophylaxis: SCDs, no GI prophylaxis indicated Result Diagram: 06/07/18 0327 06/07/18 0735 Subjective 24 Hr Interval Summary Free Text/Dictation Patient got dialysis this morning. Afterwards electrolytes corrected, patient feeling well. Chest pain resolved. Patient's friend Isabella came to visit today. Concerned that the patient is unable to care for himself at home and has had falls. Recently admitted to [facility] 3 weeks ago. Patient is uncomfortable going home today and wants to wait another day. Exam/Review of Systems Exam Vitals Vital Signs Date Temp Pulse Resp B/P (MAP) Pulse Ox O2 O2 Flow FiO2 Time Delivery Rate 06/07/18 98.1 89 18 121/57 96 15:26 (78) 06/07/18 Nasal 2.0 08:00 Cannula 06/07/18 32 02:59 Intake and Output 06/06/18 06/06/18 06/07/18 1515:00 23:00 07:00 IntakeIntake Total 340 ml OutputOutput Total 3400 ml BalanceBalance -3060 ml Exam General: Well developed man sitting in chair. Psych: Patient has very blunted affect and offers single-syllable responses or none at all. He is otherwise awake and alert. HEENT: Atraumatic, normocephalic. The pupils are equal, round and reactive. Extraocular motor are intact Neck: Supple with full range of motion. No rigidity or meningismus Chest: Nontender, right chest permacath Lungs: Coarse breath sounds/rales bilaterally, nonlabored breathing Heart: Normal S1-S2, Regular rhythm and rate. Abdomen: Soft , nontender, nondistended , bowel sounds are present. No guarding no rebound tenderness , No masses or organomegaly. No costovertebral temporal angle mass Extremities: Left upper extremity AV fistula Skin: Avulsion of L thumb cuticle with dark scab and mild surrounding erythema and tenderness. Also with erythematous scabbed ulcer on 3rd digit. Old dry ulc ers on feet. Results Results 24hrs Laboratory Tests Test 06/06/18 17:30 06/06/18 17:41 06/06/18 17:57 06/06/18 18:50 Bedside Glucose 285 H 239 H Blood Gas Blood venous Specimen Source Arterial Blood 06/06/2018 5:55:1 Date Drawn 4 PM Arterial Blood VENOUS LINE Gas Puncture Site Bradley Test N/A Venous Blood pH 7.356 Venous Blood pCO2 52.1 H (Temp Corrected) Venous Blood pO2 19.8 L (Temp Corrected) Venous Blood HCO3 28.5 Venous Blood 24.4 L Oxygen Saturation Venous Blood Base 2.4 Excess Venous Blood 10.0 Total Hemoglobin Venous Blood 23.8 Oxyhemoglobin Venous Blood 0.7 Methemoglobin Carboxyhemoglobin 1.9 Blood Gas 37.0 Temperature Blood Gas ROOM AIR Modality FiO2 21.0 Blood Gas B SHANAE ALCALA Critical Value Read Back Blood Gas T [facility] Notified Whom Blood Gas 06/06/2018 6:02:4 Notified Time 6 PM White Blood Count 15.4 #H Red Blood Count 3.49 L Hemoglobin 9.2 #L Hematocrit 31.3 L Mean Corpuscular 89.7 Volume Mean Corpuscular 26.4 L Hemoglobin Mean Corpuscular 29.4 L Hemoglobin Concen t Red Cell 17.0 #H Distribution Width Platelet Count 309 Mean Platelet 9.0 # Volume Immature 0.800 H Granulocytes % Neutrophils % 85.2 H Lymphocytes % 6.6 L Monocytes % 6.4 Eosinophils % 0.5 Basophils % 0.5 Nucleated Red 0.0 Blood Cells % Immature 0.130 H Granulocytes # Neutrophils # 13.1 H Lymphocytes # 1.0 Monocytes # 1.0 H Eosinophils # 0.1 Basophils # 0.1 Nucleated Red 0.0 Blood Cells # Sodium Level 140 Potassium Level 7.4 *H Chloride Level 93 L Carbon Dioxide 26 Level Anion Gap 21 H Blood Urea 94 H Nitrogen Creatinine 9.97 H Est Glomerular 5 L Filtrat Rate mL/min Glucose Level 259 H Calcium Level 8.5 Phosphorus Level 9.3 H Magnesium Level 2.4 Troponin I 0.182 *H Test 06/06/18 19:46 06/06/18 21:37 06/07/18 03:27 06/07/18 07:35 Bedside Glucose 269 H Sodium Level 140 140 139 Potassium Level 6.5 *H 6.4 *H 4.5 Chloride Level 95 L 94 L 98 Carbon Dioxide 25 27 26 Level Anion Gap 20 H 19 H 15 H Blood Urea 99 H 96 H 41 #H Nitrogen Creatinine 10.07 H 10.10 H 5.02 #H Est Glomerular 5 L 5 L 12 L Filtrat Rate mL/min Glucose Level 213 237 H 146 # Calcium Level 8.7 8.2 L 9.0 Creatine Kinase 58 51 Creatine Kinase 6.9 7.1 Index Creatinine Kinase 4.00 H 3.63 H MB (Mass) Troponin I 0.159 *H 0.149 *H White Blood Count 9.8 # Red Blood Count 2.81 L Hemoglobin 7.3 #L Hematocrit 25.0 #L Mean Corpuscular 89.0 Volume Mean Corpuscular 26.0 L Hemoglobin Mean Corpuscular 29.2 L Hemoglobin Concen t Red Cell 16.9 H Distribution Width Platelet Count 209 # Mean Platelet 8.9 Volume Immature 0.900 H Granulocytes % Neutrophils % 80.8 H Lymphocytes % 9.4 L Monocytes % 7.4 Eosinophils % 0.8 Basophils % 0.7 Nucleated Red 0.0 Blood Cells % Immature 0.090 H Granulocytes # Neutrophils # 7.9 H Lymphocytes # 0.9 Monocytes # 0.7 Eosinophils # 0.1 Basophils # 0.1 Nucleated Red 0.0 Blood Cells # Hemoglobin A1c 7.3 H Magnesium Level 2.3 Total Bilirubin 0.0 L 0.4 Direct Bilirubin 0.00 0.00 Indirect 0.0 0.4 Bilirubin Aspartate Amino 10 L 14 L Transf (AST/SGOT) Alanine 13 9 L Aminotransferase (ALT/SGPT) Alkaline 100 127 H Phosphatase Total Protein 6.7 7.6 Albumin 4.1 4.6 Globulin 2.60 3.00 Albumin/Globulin 1.57 1.53 Ratio Triglycerides 168 H Level Cholesterol Level 151 LDL Cholesterol, 78 Calculated HDL Cholesterol 39 Cholesterol/HDL 3.8 Ratio Thyroid 0.819 Stimulating Hormone (TSH) Hepatitis B NEGATIVE Surface Antigen Test 06/07/18 08:10 06/07/18 11:59 Bedside Glucose 150 228 H Medications Medication Current Medications Dextrose (D50w Syringe) ONCE PRN IV DECREASED GLUCOSE Last administered on 06/06/18at 19:08; Admin Dose 50 ML; Start 06/06/18 at 19:00 IV Flush (NS 3 ml) 3 ml PER PROTOCOL IV ; Start 06/06/18 at 20:30 Ondansetron HCl (Zofran Inj) 4 mg Q6H PRN IV NAUSEA/VOMITING; Start 06/06/18 at 20:30 Nitroglycerin (Nitroglycerin (Sl Tab) 0.4 Mg) 1 tab Q5M PRN SL .CHEST PAIN; Start 06/06/18 at 20:30 Acetaminophen (Tylenol Tab) 650 mg Q6H PRN PO .PAIN 1-3 OR TEMP; Start 06/06/18 at 20:30 Morphine Sulfate (morphine) 2 mg Q4H PRN IV .PAIN 7-10; Start 06/06/18 at 20:30 Docusate Sodium (Colace) 100 mg Q12H PRN PO .CONSTIPATION; Start 06/06/18 at 20:30 Bisacodyl (Dulcolax) 5 mg DAILY PRN PO .CONSTIPATION; Start 06/06/18 at 20:30 Heparin Sodium (Porcine) (Heparin (5000 Units/1ml)) 5,000 unit Q8 SC Last administered on 06/07/18at 13:49; Admin Dose 5,000 UNIT; Start 06/06/18 at 22:00 Heparin Sodium (Porcine) (Heparin (1000 Units/ml)) 3,200 unit AFTER DIALYSIS CATHETER Last administered on 06/07/18at 07:21; Admin Dose 3,200 UNIT; Start 06/07/18 at 04:00 Insulin Aspart (Novolog Insulin Pen) NOVOLOG *MILD* ALGORITHM WITH MEALS BEDTIME SC Last administered on 06/07/18at 12:03; Admin Dose 3 UNIT; Start 06/07/18 at 07:55 Miscellaneous Information 1 ea NOTE XX ; Start 06/07/18 at 04:30 Glucose (Glutose) 15 gm Q15M PRN PO DECREASED GLUCOSE; Start 06/07/18 at 04:30 Glucose (Glutose) 22.5 gm Q15M PRN PO DECREASED GLUCOSE; Start 06/07/18 at 04:30 Dextrose (D50w Syringe) 25 ml Q15M PRN IV DECREASED GLUCOSE; Start 06/07/18 at 04:30 Dextrose (D50w Syringe) 50 ml Q15M PRN IV DECREASED GLUCOSE; Start 06/07/18 at 04:30 Glucagon (Glucagen) 1 mg Q15M PRN IM DECREASED GLUCOSE; Start 06/07/18 at 04:30 Glucose (Glutose) 15 gm Q15M PRN BUCCAL DECREASED GLUCOSE; Start 06/07/18 at 04:30 Nicotine (Nicoderm 14 Mg/ 24hr) 1 patch DAILY TRANSDERM Last administered on 06/07/18at 08:11; Admin Dose 1 PATCH; Start 06/07/18 at 09:00 Aspirin (Halfprin) 81 mg DAILY PO Last administered on 06/07/18at 13:18; Admin Dose 81 MG; Start 06/07/18 at 11:00 Prasugrel (Effient) 10 mg DAILY PO ; Start 06/08/18 at 09:00 Carvedilol (Coreg) 3.125 mg BID PO ; Start 06/07/18 at 21:00 Atorvastatin Calcium (Lipitor) 40 mg HS PO ; Start 06/07/18 at 21:00 MARTY WHIPPLE MD Jun 07, 2018 16:18
[2018-06-07] MEDS: CLINDAMYCIN 150 MG CAP PO SCH (20:34)
[2018-06-07] MEDS ORDERED: ATORVASTATIN 40 MG TAB PO SCH (21:00)
[2018-06-08] VITALS (23 sets, daily range): BP systolic 101–135; BP diastolic 49–93; PULSE 81–137; RESP 17–22
[2018-06-08] MEDS: CLINDAMYCIN 150 MG CAP PO SCH ×3 (00:40→11:59)
[2018-06-08] MEDS: HEPARIN 5,000 UNIT/1 ML VIAL SC SCH ×2 (06:00→13:44)
[2018-06-08] MEDS: INSULIN ASPART [NOVOLOG] 3 ML PEN SC SCH ×2 (08:17→11:50)
[2018-06-08] MEDS: ASPIRIN (EC) 81 MG TAB PO SCH (08:45)
[2018-06-08] MEDS: NICOTINE (14 MG/24 HR) PATCH TRANSDERM SCH (08:48)
[2018-06-08] MEDS ORDERED: PRASUGREL HYDROCHLORIDE 10 MG TABLET PO SCH (09:00)
[2018-06-08] MEDS ORDERED: MULTIVIT/CA CARB/B CMPLX/FA TAB PO SCH (09:00)
--- NOTE | 2018-06-08 09:15 | CONS ---
Consult Date/Type/Reason Admit Date/Time Jun 06, 2018 at 18:49 Initial Consult Date 06/07/18 Type of Consultation: cv Requesting Provider: GARRICK SOLANO Date/Time of Note DATE: 06/08/18 TIME: 09:12 Subjective Cardiology follow-up progress note Subjective: Case discussed with the staff telemetry was reviewed. Patient with no chest pain or pressure now. Shortness of breath appears to be improving now He denies any active bleeding to me Objective: General: Appears older than stated age. No acute distress HEENT: NC/AT. pupils are equal. round. NECK: no stridor. CV: RRR. systolic murmur; no gallop or rubs. PULM: no wheezing +rhonchi. No respiratory distress GI: SOFT, NT, ND, no rebound or guarding Extremity: trace B/L LE edema. no clubbing. neuro: awake and alert, OX3. Psych: Blunted affect rectal: deferred EKG was personally reviewed which show normal sinus rhythm anteroseptal infarct age indeterminant inferior infarct age undetermined nonspecific ST-T wave abnormality Chest x-ray shows: Moderate cardiomegaly with pulmonary vascular congestion. Echocardiogram was personally reviewed which shows: Normal left ventricular cavity size. Mild concentric left ventricular hypertrophy. Moderate global left ventricular systolic dysfunction. Ejection fraction is visually estimated at 35 %. Abnormal Diastolic Function. There is moderate enlargement of left atrium. Mild mitral leaflet calcification. Mild mitral annular calcification. Mild mitral valve regurgitation. No significant aortic stenosis or insufficiency. Aortic cusps appear mildly calcified. Normal appearance of the tricuspid valve. Estimated peak PA systolic pressure 38 mmHg. There is trace tricuspid regurgitation. Objective Vitals Vital Signs Date Temp Pulse Resp B/P (MAP) Pulse Ox O2 O2 Flow FiO2 Time Delivery Rate 06/08/18 100 08:06 06/08/18 98.3 18 119/58 91 Nasal 2.0 07:43 (78) Cannula 06/07/18 32 02:59 Intake and Output 06/07/18 06/07/18 06/08/18 1414:59 22:59 06:59 IntakeIntake Total 400 ml OutputOutput Total 3400 ml BalanceBalance -3400 ml 400 ml Results/Medications Result Diagram: 06/07/18 0327 06/07/18 0735 Results 24 hrs Laboratory Tests Test 06/07/18 11:59 06/07/18 17:20 06/07/18 20:14 06/08/18 06:07 Bedside Glucose 228 H 226 H 176 Creatine Kinase 72 Creatine Kinase Index 11.5 Creatinine Kinase MB 8.31 H (Mass) Troponin I 0.106 Triglycerides Level 235 H Cholesterol Level 179 LDL Cholesterol, 80 Calculated HDL Cholesterol 52 # Cholesterol/HDL Ratio 3.4 Test 06/08/18 08:05 Bedside Glucose 167 Home Meds Reported Medications Gabapentin* (Gabapentin*) 300 Mg Capsule, 300 MG PO TID, #90 CAP 06/07/18 Ferrous Sulfate (Ferrous Sulfate) 325 Mg Tablet.dr, 325 MG PO DAILY for 30 Days, #30 06/06/18 Discontinued Reported Medications Trazodone Hcl* (Trazodone Hcl*) 150 Mg Tablet, 150 MG PO HS, TAB 12/14/13 Naphazoline Hcl* (Ak-Con*) 0.1% - 15 ML Drops Opht, 1 DROP BOTH EYES BID, EA 12/14/13 Gabapentin* (Neurontin*) 300 Mg Capsule, 300 MG PO TID, CAP 12/14/13 Spironolactone* (Aldactone*) 25 Mg Tablet, 25 MG PO DAILY, TAB 12/14/13 Naproxen* (Naprosyn*) 375 Mg Tablet, 375 MG PO BID, TAB 12/14/13 Aspirin* (Aspirin* EC) 81 Mg Tablet.dr, 81 MG PO DAILY, TAB 12/14/13 Atorvastatin* (Atorvastatin*) 40 Mg Tablet, 40 MG PO HS, TAB 12/14/13 Furosemide* (Lasix*) 20 Mg Tablet, 20 MG PO DAILY, TAB 12/14/13 Insulin Glargine* (Lantus*) 100 Unit/Ml Soln, 30 UNIT SC HS, EA 12/14/13 Insulin Lispro (Humalog) 100 U/Ml Cartridge, 10 UNITS SC TID W/ MEALS, EA 12/14/13 Carvedilol* (Coreg*) 12.5 Mg Tablet, 12.5 MG PO BID, TAB 12/14/13 Insulin Regular, Human* (Novolin R*) 100 U/Ml Vial, 0 SC SLIDING SCALE AC, VIAL 12/13/13 Insulin Glargine* (Lantus*) 100 Unit/Ml Soln, 25 UNIT SC HS, EA 12/13/13 Atorvastatin* (Atorvastatin*) 40 Mg Tablet, 40 MG PO, TAB 12/13/13 Carvedilol* (Carvedilol*) 12.5 Mg Tablet, 12.5 MG PO, TAB 12/13/13 Spironolactone* (Aldactone*) 25 Mg Tablet, 25 MG PO, TAB 12/13/13 Gabapentin* (Gabapentin*) 300 Mg Capsule, 300 MG PO, CAP 12/13/13 Medications Current Medications Dextrose (D50w Syringe) ONCE PRN IV DECREASED GLUCOSE Last administered on 06/06/18at 19:08; Admin Dose 50 ML; Start 06/06/18 at 19:00 IV Flush (NS 3 ml) 3 ml PER PROTOCOL IV ; Start 06/06/18 at 20:30 Ondansetron HCl (Zofran Inj) 4 mg Q6H PRN IV NAUSEA/VOMITING; Start 06/06/18 at 20:30 Nitroglycerin (Nitroglycerin (Sl Tab) 0.4 Mg) 1 tab Q5M PRN SL .CHEST PAIN; Start 06/06/18 at 20:30 Acetaminophen (Tylenol Tab) 650 mg Q6H PRN PO .PAIN 1-3 OR TEMP; Start 06/06/18 at 20:30 Morphine Sulfate (morphine) 2 mg Q4H PRN IV .PAIN 7-10; Start 06/06/18 at 20:30 Docusate Sodium (Colace) 100 mg Q12H PRN PO .CONSTIPATION; Start 06/06/18 at 20:30 Bisacodyl (Dulcolax) 5 mg DAILY PRN PO .CONSTIPATION; Start 06/06/18 at 20:30 Heparin Sodium (Porcine) (Heparin (5000 Units/1ml)) 5,000 unit Q8 SC Last administered on 06/07/18at 22:22; Admin Dose 5,000 UNIT; Start 06/06/18 at 22:00 Heparin Sodium (Porcine) (Heparin (1000 Units/ml)) 3,200 unit AFTER DIALYSIS CATHETER Last administered on 06/07/18at 07:21; Admin Dose 3,200 UNIT; Start 06/07/18 at 04:00 Insulin Aspart (Novolog Insulin Pen) NOVOLOG *MILD* ALGORITHM WITH MEALS BEDTIME SC Last administered on 06/08/18at 08:17; Admin Dose 1 UNIT; Start 06/07/18 at 07:55 Miscellaneous Information 1 ea NOTE XX ; Start 06/07/18 at 04:30 Glucose (Glutose) 15 gm Q15M PRN PO DECREASED GLUCOSE; Start 06/07/18 at 04:30 Glucose (Glutose) 22.5 gm Q15M PRN PO DECREASED GLUCOSE; Start 06/07/18 at 04:30 Dextrose (D50w Syringe) 25 ml Q15M PRN IV DECREASED GLUCOSE; Start 06/07/18 at 04:30 Dextrose (D50w Syringe) 50 ml Q15M PRN IV DECREASED GLUCOSE; Start 06/07/18 at 04:30 Glucagon (Glucagen) 1 mg Q15M PRN IM DECREASED GLUCOSE; Start 06/07/18 at 04:30 Glucose (Glutose) 15 gm Q15M PRN BUCCAL DECREASED GLUCOSE; Start 06/07/18 at 04:30 Nicotine (Nicoderm 14 Mg/ 24hr) 1 patch DAILY TRANSDERM Last administered on 06/08/18at 08:48; Admin Dose 1 PATCH; Start 06/07/18 at 09:00 Aspirin (Halfprin) 81 mg DAILY PO Last administered on 06/08/18at 08:45; Admin Dose 81 MG; Start 06/07/18 at 11:00 Prasugrel (Effient) 10 mg DAILY PO Last administered on 06/08/18at 08:44; Admin Dose 10 MG; Start 06/08/18 at 09:00 Carvedilol (Coreg) 3.125 mg BID PO Last administered on 06/08/18at 08:45; Admin Dose 3.125 MG; Start 06/07/18 at 21:00 Atorvastatin Calcium (Lipitor) 40 mg HS PO Last administered on 06/07/18at 20:30; Admin Dose 40 MG; Start 06/07/18 at 21:00 Clindamycin HCl (Cleocin) 450 mg Q6 PO Last administered on 06/08/18at 06:37; Admin Dose 450 MG; Start 06/07/18 at 18:00 Epoetin Kelby-epbx (RETACRIT(non-esrd)) 10,000 unit ONCE ONCE SC ; Start 06/08/18 at 17:00; Stop 06/08/18 at 17:01 Multivit/Ca Carb/ B Cmplx/FA/Prenat (Blanka-Eric) 1 tab DAILY PO ; Start 06/08/18 at 09:00 Sevelamer Carbonate (Renvela) 800 mg WITH MEALS PO ; Start 06/08/18 at 11:50 Assessment/Plan Hospital Course (Demo Recall) 1. Mildly abnormal troponin: Probably secondary to non-ST elevation myocardial infarction type II due to fluid overload/renal failure/central versus acute AR. 2. Coronary artery disease status post AR status post chronic bypass graft status post PCI 3. Congestive heart failure: Acute on chronic secondary to underlying severe LV dysfunction/systolic dysfunction in addition to the fluid overload secondary to noncompliance with hemodialysis 4. Ischemic cardiomyopathy 5. Anemia 6. Hypertension 7. Dyslipidemia 8. Smoker 9. Diabetes 10. Hyperkalemia Recommendation: Continue with aspirin/antiplatelet agents. Normally Effient is not used in patient with dialysis. However he has been on it previously by his glacing machine tender and has not had any complication. Therefore we will continue with rate and switching it to have with outpatient follow-up with his regular glacing machine tender. Continue with beta-jourdan Statin Ischemic work-up was recommended to the patient including stress testing however patient has refused. We will continue medical therapy only per his request He was advised to stop smoking however again he does not appear to be compliant with it Hemodialysis as per renal Thank you for his referral. I will continue to follow along with you AURELIO REYNAGA MD [facility] AURELIO REYNAGA MD June 08, 2018 09:15
--- NOTE | 2018-06-08 09:25 | PN ---
DATE: 06/08/2018 SUBJECTIVE: The patient is stable, no events overnight. OBJECTIVE: VITAL SIGNS: Blood pressure is 119/58, pulse 100, temperature 98.3. HEENT: Head is normocephalic. NECK: Supple. HEART: Regular rate. LUNGS: Show diminished breath sounds at the base. ABDOMEN: Soft, nontender to palpation without rebound or guarding. EXTREMITIES: Negative for clubbing, cyanosis, no edema. DERMATOLOGIC: No rashes. MUSCULOSKELETAL: No joint effusion. NEUROLOGIC: No change in exam. MEDICATIONS: Reviewed. LABORATORY DATA: From 06/07/2018 was reviewed. ASSESSMENT AND PLAN: 1. End-stage renal disease. The patient is scheduled for dialysis today. We will dialyze for 3 darline rs 2k bath, calcium 2.5. 2. Hyperkalemia, improved. Continue dialysis on a low potassium bath. Continue renal diet. 3. Mineral bone disorder, monitor calcium and phosphorus levels. Resume phosphate binders. 4. Anemia. Continue to monitor hemoglobin and hematocrit levels. We will give Epogen with hemodial ysis. 5. Uremia, improved. 6. Chest pain. The patient's pain is improved. The patient has been ruled out for acute coronary s yndrome. Continue to monitor. 7. History of coronary artery disease. Continue medical management. 8. Diabetes. Continue Accu-Cheks and insulin sliding scale. 9. Tobacco abuse. Continue nicotine patch. 10. Generalized weakness, improved. Dictated By: LIBBY LOVE DO NR/NTS Conf#: [id number] DID#: [id number] CC: LIBBY LOVE DO; MARTY WHIPPLE MD; GARRICK SOLANO MD;*EndCC*
[2018-06-08] MEDS ORDERED: SEVELAMER CARBONATE 800 MG TABLET PO SCH (11:50)
[2018-06-08] MEDS: HEPARIN 1000 UNITS/ML 10 ML INJ CATHETER SCH (13:15)
--- NOTE | 2018-06-08 14:01 | RADRPT ---
Vent Rate: 89 bpm RR Interval: 676 msec TX Interval: 225 msec QRS Duration: 116 msec QT Interval: 394 msec QTC Interval: 479 msec P-R-T [place]: 40 - -7 - 154 degrees Sinus rhythm...normal P axis, V-rate 50- 99 Ventricular premature complex...V complex w/ short R-R interval Prolonged TX interval...TX >210, V-rate 50- 90 Incomplete right bundle branch block...QRSd >112, terminal axis(90,270) Probable anteroseptal infarct, old...Q >30mS & abn ST-T, V1-V2 Repol abnrm suggests ischemia, lateral leads...ST dep, T neg, I aVL V5 V6 Electronically Signed By: Guru Rosado
[2018-06-08] MEDS ORDERED: CLIN150C17 PO (14:46)
--- NOTE | 2018-06-08 16:58 | DS ---
Date/Time of Note Date/Time of Note DATE: 06/08/18 TIME: 16:55 Discharge Summary Admission/Discharge Info Admit Date/Time Jun 06, 2018 at 18:49 Discharge Date/Time June 08, 2018 at 16:10 Discharge Diagnosis Missed dialysis Patient Condition: Good Hx of Present Illness Chief complaint: Weakness and feeling sick This is a 57-year-old male with coronary disease, hypertension, diabetes, and end-stage renal disease dialysis Wednesday who presents feeling weak and sick. He feels weak all over. He had subjective fever but did not take his temperature. He feels some midsternal chest pain. He missed dialysis today because he did not feel well. He did have dialysis on Wednesday. In the ED labs were concerning for K 7.4, BUN 94. Allergies: Amoxicillin Medications: See APR Hospital Course The patient got urgent dialysis the morning after admission. Labs normalized and symptoms improved. Got one more dialysis session prior to discharge. He was found to have erythematous ulcers on his L hand and restricted range of motion. 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 I started clindamycin and erythema improved and hand ROM improved, so I discharged him on a 7 day course (had PCN allergy). Of note, his family friend came to visit and mentioned that the patient has frequent falls and may have trouble caring for himself at home. The patient was offered SNF but declined, saying he wants to go home. He has capacity to make this decision so he was discharged. Home Meds Active Scripts Clindamycin Hcl* (Cleocin*) 150 Mg Cap, 450 MG PO Q6, #28 CAP Prov:MARTY WHIPPLE MD 06/08/18 Aspirin Delayed Release (Aspirin Delayed Release) 81 Mg Tablet.dr, 81 MG PO DAILY, #30 Prov:MARTY WHIPPLE MD 06/07/18 Carvedilol* (Carvedilol*) 3.125 Mg Tablet, 3.125 MG PO BID, #30 TAB Prov:MARTY WHIPPLE MD 06/07/18 Atorvastatin* (Atorvastatin*) 40 Mg Tablet, 40 MG PO HS, #30 TAB Prov:MARTY WHIPPLE MD 06/07/18 Prasugrel Hydrochloride* (Effient*) 10 Mg Tablet, 10 MG PO DAILY, #30 TAB Prov:MARTY WHIPPLE MD 06/07/18 Reported Medications Gabapentin* (Gabapentin*) 300 Mg Capsule, 300 MG PO TID, #90 CAP 06/07/18 Ferrous Sulfate (Ferrous Sulfate) 325 Mg Tablet.dr, 325 MG PO DAILY for 30 Days, #30 06/06/18 Discontinued Reported Medications Trazodone Hcl* (Trazodone Hcl*) 150 Mg Tablet, 150 MG PO HS, TAB 12/14/13 Naphazoline Hcl* (Ak-Con*) 0.1% - 15 ML Drops Opht, 1 DROP BOTH EYES BID, EA 12/14/13 Gabapentin* (Neurontin*) 300 Mg Capsule, 300 MG PO TID, CAP 12/14/13 Spironolactone* (Aldactone*) 25 Mg Tablet, 25 MG PO DAILY, TAB 12/14/13 Naproxen* (Naprosyn*) 375 Mg Tablet, 375 MG PO BID, TAB 12/14/13 Aspirin* (Aspirin* EC) 81 Mg Tablet.dr, 81 MG PO DAILY, TAB 12/14/13 Atorvastatin* (Atorvastatin*) 40 Mg Tablet, 40 MG PO HS, TAB 12/14/13 Furosemide* (Lasix*) 20 Mg Tablet, 20 MG PO DAILY, TAB 12/14/13 Insulin Glargine* (Lantus*) 100 Unit/Ml Soln, 30 UNIT SC HS, EA 12/14/13 Insulin Lispro (Humalog) 100 U/Ml Cartridge, 10 UNITS SC TID W/ MEALS, EA 12/14/13 Carvedilol* (Coreg*) 12.5 Mg Tablet, 12.5 MG PO BID, TAB 12/14/13 Insulin Regular, Human* (Novolin R*) 100 U/Ml Vial, 0 SC SLIDING SCALE AC, VIAL 12/13/13 Insulin Glargine* (Lantus*) 100 Unit/Ml Soln, 25 UNIT SC HS, EA 12/13/13 Atorvastatin* (Atorvastatin*) 40 Mg Tablet, 40 MG PO, TAB 12/13/13 Carvedilol* (Carvedilol*) 12.5 Mg Tablet, 12.5 MG PO, TAB 12/13/13 Spironolactone* (Aldactone*) 25 Mg Tablet, 25 MG PO, TAB 12/13/13 Gabapentin* (Gabapentin*) 300 Mg Capsule, 300 MG PO, CAP 12/13/13 Follow-up Plan 1. Continue taking all medications as prescribed. 2. Continue dialysis as scheduled. 3. See your primary care doctor in 1-2 weeks. 4. Return to the emergency room if you develop pressure-like chest pain that does not resolve with rest, or if you miss dialysis again. Primary Care Provider Not On Staff Doctor Time spent on discharge: > 30 minutes Pending Labs Laboratory Tests Test 06/07/18 17:20 06/07/18 20:14 06/08/18 06:07 06/08/18 08:05 Bedside 226 176 167 Glucose mg/dL (70-220) mg/dL (70-220) mg/dL (70-220) Creatine 72 Kinase IU/L (23-200) Creatine Kinase 11.5 Index Creatinine 8.31 Kinase MB ng/ml (0.0-2.4 (Mass) ) Troponin I 0.106 ng/ml (0.000-0 .120) Triglycerides 235 Level mg/dl (0-149) Cholesterol 179 Level mg/dl (100-200 ) LDL 80 mg/dl Cholesterol, Calculated HDL 52 Cholesterol mg/dl (28-71) Cholesterol/HDL 3.4 RATIO Ratio Test 06/08/18 12:02 Bedside 129 Glucose mg/dL (70-220) MARTY WHIPPLE MD June 08, 2018 16:58
[2018-06-08] MEDS ORDERED: EPOETIN ALFA-EPBX (NON-ESRD 10,000 UNIT/ML VIAL SC ONE (17:00)
== END 2018-06-08 16:10 | disposition home or self-care (01) | DRG 280 ==
LOC: E/R 17:24 → TEL 18:49
PROVIDERS: ADMIT Family Medicine; ATTEND Internal Medicine
PROC: 5A1D70Z Performance of Urinary Filtration, Intermittent, Less than 6 Hours Per Day (ICD-10-PCS; principal; 2018-06-07)
PROC: 5A1D70Z Performance of Urinary Filtration, Intermittent, Less than 6 Hours Per Day (ICD-10-PCS; 2018-06-08)
DX: I13.2 Hypertensive heart and chronic kidney disease with heart failure and with stage 5 chronic kidney disease, or end stage renal disease (principal); I50.23 Acute on chronic systolic (congestive) heart failure; I21.A1 Myocardial infarction type 2; N18.6 End stage renal disease; E11.22 Type 2 diabetes mellitus with diabetic chronic kidney disease; E87.5 Hyperkalemia; L98.499 Non-pressure chronic ulcer of skin of other sites with unspecified severity; Z68.29 Body mass index [BMI] 29.0-29.9, adult; I25.10 Atherosclerotic heart disease of native coronary artery without angina pectoris; I25.5 Ischemic cardiomyopathy; D63.1 Anemia in chronic kidney disease; E78.5 Hyperlipidemia, unspecified; I44.7 Left bundle-branch block, unspecified; R62.7 Adult failure to thrive; F17.200 Nicotine dependence, unspecified, uncomplicated; Z79.4 Long term (current) use of insulin; Z79.82 Long term (current) use of aspirin; Z79.02 Long term (current) use of antithrombotics/antiplatelets; Z99.2 Dependence on renal dialysis; Z95.1 Presence of aortocoronary bypass graft; Z91.15 Patient's noncompliance with renal dialysis
CPT/HCPCS: 36415; 71045; 80048; 80053; 80061; 82550; 82553; 82803; 82962; 83036; 83735; 84100; 84443; 84484; 85025; 87340; 90935; 93005; 93306; 94664; J1644; J1815; P9047; Q5106

== ENCOUNTER 2018-08-08 05:13 | Inpatient (IN) | payer MEDICARE, OTHER ==
[2018-08-08] VITALS (34 sets, daily range): BP systolic 78–134; BP diastolic 21–99; PULSE 85–145; RESP 9–41; Ht 177.8 cm; Wt 94.1 kg
[~2018-08-08] VITALS: Ht 177.8 cm; Wt 94.1 kg
[~2018-08-08 05:13] MED LIST changes: +ASPI-1044 PO; -ASPI-817 PO; -CARV12.579 PO; -CARV12.598 PO; +CARV3.1260 PO; +CLIN150C17 PO; +FERR325T5 PO; -FURO-110 PO; -GABA300C PO; -INSU100C SC; -INSU100V23 SC; -LANT3I SC; -NAPR375T PO; -NP.1OP15 BOTH EYES; +PRAS10TA6 PO; -SPIR25TA PO; -TRAZ150T65 PO
[2018-08-08] MEDS ORDERED: SOD CHLORIDE 0.9% 1,000 ML IV STA (05:57)
[2018-08-08] MEDS ORDERED: CA CHLORIDE 10% 10 ML SYRINGE IV ONE ×2 (06:00→06:30)
[2018-08-08] MEDS ORDERED: CEFEPIME 2GM/50 ML (PMX) 50 ML IVPB STA (06:12)
[2018-08-08] MEDS ORDERED: AMIODARONE 150MG/D5W BOLUS 100 ML IV STA (06:15)
[2018-08-08] MEDS ORDERED: NA BICARBONATE 8.4% 50 ML SYG IV STA (06:15)
[2018-08-08] MEDS ORDERED: AMIODARONE 900 MG in DEXTROSE 5% 482 ML IV STA (06:15)
--- NOTE | 2018-08-08 06:25 | ERD ---
ER Documentation Chief Complaint Chief Complaint BIBRA 90,from home,syncope,blood sugar 62,c/o lower back pain HPI This is a 58-year-old male who presents from home for complaint of syncope. Patient was brought in from home, he had a notable blood sugar of 62, he also complained of lower back pain. History was limited secondary to acuity of condition, patient states he just feels discomfort, and feels very weak. He denies a fever. He has not had any nausea or vomiting. He denies any chest pain or shortness of breath currently. ROS All systems reviewed and are negative except as per history of present illness. Medications Home Meds Active Scripts Clindamycin Hcl* (Cleocin*) 150 Mg Cap, 450 MG PO Q6, #28 CAP Prov:MARTY WHIPPLE MD 06/08/18 Aspirin Delayed Release (Aspirin Delayed Release) 81 Mg Tablet.dr, 81 MG PO DAILY, #30 Prov:MARTY WHIPPLE MD 06/07/18 Carvedilol* (Carvedilol*) 3.125 Mg Tablet, 3.125 MG PO BID, #30 TAB Prov:MARTY WHIPPLE MD 06/07/18 Atorvastatin* (Atorvastatin*) 40 Mg Tablet, 40 MG PO HS, #30 TAB Prov:MARTY WHIPPLE MD 06/07/18 Prasugrel Hydrochloride* (Effient*) 10 Mg Tablet, 10 MG PO DAILY, #30 TAB Prov:MARTY WHIPPLE MD 06/07/18 Reported Medications Gabapentin* (Gabapentin*) 300 Mg Capsule, 300 MG PO TID, #90 CAP 06/07/18 Ferrous Sulfate (Ferrous Sulfate) 325 Mg Tablet.dr, 325 MG PO DAILY for 30 Days, #30 06/06/18 Allergies Allergies: Coded Allergies: amoxicillin (Unverified Allergy, Unknown, 06/06/18) Uncoded Allergies: STEROIDS (Allergy, Unknown, 08/08/18) PMhx/Soc History of Surgery: Yes (CABG, lt ring finger ) Anesthesia Reaction: No Hx Neurological Disorder: No Hx Respiratory Disorders: No Hx Cardiac Disorders: Yes ([place], COPD) Hx Psychiatric Problems: Yes (Depression) Hx Miscellaneous Medical Probl: Yes (kidney stones, DIALYSIS (M,W,F)) Hx Alcohol Use: No Hx Substance Use: No Hx Tobacco Use: Yes Smoking Status: Current some day smoker Physical Exam Vitals Vital Signs Date Temp Pulse Resp B/P (MAP) Pulse Ox O2 O2 Flow FiO2 Time Delivery Rate 08/08/18 109 13 95/29 (51) 98 Nasal 2.0 06:07 Cannula 08/08/18 126 12 93/51 (65) 99 Nasal 2.0 05:47 Cannula 08/08/18 97.7 108 16 103/47 93 05:29 (65) Physical Exam Const: Somnolent, but arousable, appears confused Head: Atraumatic Eyes: Normal Conjunctiva, pupils equal round reactive to light ENT: Normal External Ears, Nose and Mouth. Neck: Full range of motion. No meningismus. Resp: Breath sounds are coarse bilaterally Cardio: Regular rate and rhythm, no murmurs Abd: Soft, non tender, non distended. Normal bowel sounds Skin: No petechiae or rashes Back: No midline or flank tenderness Ext: No cyanosis, 1+ pitting edema, patient has a left-sided arm splint, distally pulses are intact Neur: Awake and alert Psych: Normal Mood and Affect Result Diagram: 08/08/18 0545 08/08/1845 Results 24 hrs Laboratory Tests Test 08/08/18 05:16 08/08/18 05:45 08/08/18 06:43 Bedside Glucose 81 mg/dL 120 mg/dL White Blood Count 18.4 10^3/ul Red Blood Count 3.89 10^6/ul Hemoglobin 10.7 g/dl Hematocrit 35.3 % Mean Corpuscular Volume 90.7 fl Mean Corpuscular Hemoglobin 27.5 pg Mean Corpuscular Hemoglobin Concent 30.3 g/dl Red Cell Distribution Width 15.6 % Platelet Count 382 10^3/UL Mean Platelet Volume 8.7 fl Immature Granulocytes % 1.100 % Neutrophils % 91.1 % Lymphocytes % 2.1 % Monocytes % 5.3 % Eosinophils % 0.1 % Basophils % 0.3 % Nucleated Red Blood Cells % 0.0 /100WBC Immature Granulocytes # 0.200 10^3/ul Neutrophils # 16.7 10^3/ul Lymphocytes # 0.4 10^3/ul Monocytes # 1.0 10^3/ul Eosinophils # 0.0 10^3/ul Basophils # 0.1 10^3/ul Nucleated Red Blood Cells # 0.0 10^3/ul Sodium Level 139 mmol/L Potassium Level 7.8 mmol/L Chloride Level 93 mmol/L Carbon Dioxide Level 23 mmol/L Anion Gap 23 Blood Urea Nitrogen 66 mg/dl Creatinine 10.45 mg/dl Est Glomerular Filtrat Rate mL/min 5 mL/min Glucose Level 90 mg/dl Calcium Level 8.7 mg/dl Total Bilirubin 0.3 mg/dl Direct Bilirubin 0.00 mg/dl Indirect Bilirubin 0.3 mg/dl Aspartate Amino Transf (AST/SGOT) 52 IU/L Alanine Aminotransferase (ALT/SGPT) 15 IU/L Alkaline Phosphatase 108 IU/L Troponin I 0.343 ng/ml Total Protein 8.2 g/dl Albumin 4.7 g/dl Globulin 3.50 g/dl Albumin/Globulin Ratio 1.34 Lipase 50 U/L Current Medications Medications Dose Sig/Seamus Start Time Status Last (Trade) Ordered Route PRN Stop Time Admin Dose Reason Admin Sodium 1,000 ml @ Q1H STAT 08/08/18 DC Chloride 1,000 mls/hr IV 05:57 08/08/18 06:56 Calcium 1,000 mg ONCE ONCE 08/08/18 DC 08/08/18 Chloride IV 06:00 08/08/18 05:59 (Ca Chloride 06:01 10% Syg) Magnesium 50 ml @ 25 ONCE ONCE 08/08/18 08/08/18 Sulfate mls/hr IVPB 06:30 08/08/18 06:36 08:29 Cefepime HCl 50 ml @ ONCE STAT 08/08/18 DC 100 mls/hr IVPB 06:12 08/08/18 06:41 Vancomycin 250 ml @ ONCE ONCE 08/08/18 HCl 125 mls/hr IVPB 06:30 08/08/18 08:29 Amiodarone 100 ml @ ONCE STAT 08/08/18 DC 08/08/18 HCl 600 mls/hr IV 06:15 08/08/18 06:42 06:24 Amiodarone 500 ml @ 0 ONCE STAT 08/08/18 DC 08/08/18 HCl 900 mls/hr IV 06:15 08/08/18 07:08 mg/Dextrose 06:19 Sodium 50 ml ONCE STAT 08/08/18 DC 08/08/18 Bicarbonate IV 06:15 08/08/18 06:35 (Na Bicarb 06:19 8.4% Syg) Calcium 1,000 mg ONCE ONCE 08/08/18 DC 08/08/18 Chloride IV 06:30 08/08/18 06:42 (Ca Chloride 06:46 10% Syg) Albuterol 15 mg ONCE STAT 08/08/18 DC (Proventil INH 06:32 08/08/18 0.5% (Neb)) 06:36 Sodium 1,000 ml @ Q2H STAT 08/08/18 Bicarbonate 500 mls/hr IV 06:32 08/08/18 100 08:31 meq/Dextrose Insulin 5 unit ONCE STAT 08/08/18 DC 08/08/18 Human IVP 06:32 08/08/18 06:52 Regular 06:36 (Humulin R) Dextrose ONCE PRN 08/08/18 08/08/18 (D50w IV DECREASED 07:00 06:52 Syringe) GLUCOSE Procedures/MDM This is a 58-year-old male who presents for evaluation of near syncopal episode and generalized weakness. On exam, patient was internally confused, saying "check please", he was arousable to stimuli, and open his eyes spontaneously. On initial evaluation he was given calcium chloride empirically, for what was noted to be a wide-complex tachycardia in the setting of prior.dialysis this was concerning for hyperkalemia. This had no effect on his rhythm, subsequently his potassium returned at 7.4. I spoke with Dr. Ashford for emergent dialysis, patient has remained hemodynamically stable. I noted his white count to be 18, thus the patient was given empiric IV antibiotics. 7:19 AM: Dr. Ashford at the bedside Central Line Placement by me: Patient consented, sterilely draped, full prep, gown, glove, mask, time out performed. Anesthesia: 1% lidocaine locally Location: Right femoral line Device: Multiple lumen Technique: Seldinger technique. Secured with suture. Results: Venous return from all ports with easy saline flush. No complications. Guide wire retrieved and disposed of. Critical Care Time: 90 minutes Treatments/Evaluations: Close monitoring and treatment of unstable vital signs, cardiorespiratory, and neurologic status, while maintaining tight balance of fluid, respiratory, and cardiac interventions. This time includes discussing the case with the patient and the patient's family. This time does not include all procedures stated elsewhere in this record. This time also includes reviewing old records, labs and radiological studies. This time includes examining and re- examining the patient. Additionally, this time also includes arranging care with admitting and consulting physicians. Accepting Care Team: Current data and ongoing care discussed. Primary: Tc Consulting: Dejon Outstanding Data: none Departure Diagnosis: Primary Impression: Syncope Syncope type: unspecified Qualified Codes: R55 - Syncope and collapse Additional Impression: Hyperkalemia Condition: Serious PRUDENCIO REA MD Aug 08, 2018 06:25
[2018-08-08] MEDS ORDERED: MAGNESIUM SULFATE 2 GM/50 ML 50 ML IVPB ONE (06:30)
[2018-08-08] MEDS ORDERED: VANCOMYCIN 1 GM (PMX) 250 ML IVPB ONE (06:30)
[2018-08-08] MEDS ORDERED: SODIUM BICARBONATE (IV ADD) 100 MEQ in DEXTROSE 5% 900 ML IV STA (06:32)
[2018-08-08] MEDS ORDERED: ALBUTEROL 0.5% (NEB) 2.5 MG/0.5 ML AMP INH STA (06:32)
[2018-08-08] MEDS ORDERED: INSULIN REGULAR, HUMAN 100 UNIT/1 ML 3ML VIAL IVP STA (06:32)
[2018-08-08] MEDS ORDERED: DEXTROSE 50% 50 ML SYRINGE IV PRN ×3 (07:00→18:00)
[2018-08-08] MEDS ORDERED: IPRATROPIUM (NEB) 0.5 MG/2.5 ML AMP NEB PRN (07:30)
[2018-08-08] MEDS ORDERED: BISACODYL (EC) 5 MG TAB PO PRN (07:30)
[2018-08-08] MEDS ORDERED: DOCUSATE SODIUM 100 MG CAP PO PRN ×2 (07:30→17:00)
[2018-08-08] MEDS ORDERED: ALBUTEROL 0.083% (NEB) 2.5 MG/3 ML AMP NEB PRN (07:30)
[2018-08-08] MEDS ORDERED: ACETAMINOPHEN 325 MG TAB PO PRN ×2 (07:30→17:00)
[2018-08-08] MEDS ORDERED: ONDANSETRON 4 MG INJ IV PRN ×2 (07:30→17:00)
[2018-08-08] MEDS ORDERED: COLC0.6T6 PO (08:01)
[2018-08-08] MEDS ORDERED: ISOS30TA67 PO (08:01)
[2018-08-08] MEDS ORDERED: IPRA4AER INHALATION (08:02)
[2018-08-08] MEDS ORDERED: NOVO3I SC (08:02)
[2018-08-08] MEDS ORDERED: FURO80TA78 PO (08:03)
[2018-08-08] MEDS ORDERED: INSU100I33 SC (08:04)
--- NOTE | 2018-08-08 08:49 | CONS ---
DATE OF ADMISSION: 08/08/2018 DATE OF CONSULTATION: 08/08/2018 TYPE OF CONSULTATION: Nephrology. REASON FOR CONSULTATION: End-stage renal disease, hyperkalemia. PHYSICIAN REQUESTING CONSULT: Dr. Rea. HISTORY OF PRESENT ILLNESS: This is a 58-year-old male with a past medical history of end-stage april l disease on dialysis Wednesday, Wednesday, Wednesday with access of a left AV fistula. The patient's neph rologist is unknown. History of hypertension, history of coronary artery bypass graft, coronary mykel ry disease, chronic obstructive pulmonary disease who presents to [facility] emergency Room with lower back pain and syncope. The patient upon arrival was not able to provide adequate history. There were no reports of any nausea, vomiting. The patient had laboratory data drawn, which showed a markedly elevated potassium of 7.8, elevated troponin, elevated white count. The patient was give n IV insulin and dextrose and IV antibiotics. Adjust the patient's hemodialysis. The patient previously was on dialysis Wednesday, Wednesday and ay. The patient's primary demonstrator knitting is unknown. Last hemodialysis is unknown. PAST MEDICAL HISTORY: As stated above, history of end-stage renal disease, history of hypertension, history of anemia, history of coronary artery disease, history of depression. PAST SURGICAL HISTORY: Status post Perm-A-Cath, status post AV fistula. FAMILY HISTORY: No family history of kidney disease. SOCIAL HISTORY: He does not drink, smoke or do drugs. MEDICATIONS: The patient's medications have been reviewed. REVIEW OF SYSTEMS: Unable to do adequate review of systems as the patient is altered. Pertinent pos itives as obtained by reviewing medical records and speaking to hospital staff, stated in HPI, otherw ise negative. PHYSICAL EXAMINATION: VITAL SIGNS: Blood pressure is 95/29, respirations 13, pulse 109, temperature 97.7. HEENT: Head is normocephalic. NECK: Supple. HEART: Regular rate. LUNGS: Show diminished breath sounds at the base. ABDOMEN: Soft, nontender to palpation without rebound or guarding. EXTREMITIES: Negative for clubbing, cyanosis. Trace edema. DERMATOLOGIC: No rashes. MUSCULOSKELETAL: The patient has noted splint over his left forearm noted bruising on lower extremit y. NEUROLOGIC: Limited exam as the patient is obtunded. MEDICATIONS: Reviewed. LABORATORY DATA: Reviewed. ASSESSMENT AND PLAN: This is a 58-year-old male, who presents with; 1. End-stage renal disease. The patient is on dialysis Wednesday, Wednesday and Wednesday with access AV fistula. Plan is for urgent hemodialysis today. We will dialyze for 3-1/2 hours 2k bath, calcium 2. 5. Anticipate dialysis again tomorrow for solute clearance. 2. Hyperkalemia secondary to end-stage renal disease. The patient will be dialyzed 2 potassium bath . The patient has been given IV insulin, calcium gluconate. 3. Anemia. Continue to monitor hemoglobin and hematocrit levels. We will give Epogen as needed. 4. Mineral bone disorder, monitor calcium and phosphorus levels. 5. Systemic inflammatory response syndrome, possible sepsis. Underlying source is unclear, possible pneumonia. Continue current antibiotic therapy. Follow up with cultures. 6. Syncope, etiology is unclear, may be secondary to sepsis, pneumonia. Neurologic workup is ongoin g. Continue to monitor. 7. History of coronary artery disease, coronary artery bypass graft. Continue medical management. 8. History of hypertension. 9. Dyslipidemia. Continue statin therapy. 10. History of tobacco use. Thank you, Dr. Feldman, for this interesting consult. It will be a pleasure to follow the patient with you throughout the hospital course. Dictated By: LIBBY LOVE DO NR/NTS Conf#: [id number] DID#: [id number] CC: PRUDENCIO ERA MD; MARTY MCFADDEN MD;*EndCC*
[2018-08-08] MEDS: FAMOTIDINE 20 MG INJ IV SCH (10:44)
[2018-08-08] MEDS: morphine 2 MG INJ IV PRN ×2 (10:44→14:25)
--- NOTE | 2018-08-08 13:26 | RADRPT ---
Echocardiogram Report Patient Name: PATRICIO MCKEONPatient ID: [id number] : 1960 (58y 1m)Study Date: 08/08/2018 8:30:53 AM Gender: MAccession #: [id number] Tech: Adolph Weaver RDCS Location: [facility] Ref.Physician: GARRICK SOLANO Height(Cm): BSA: Weight(Kg): Quality: AdequateOrder Physician: GARRICK SOLANO Account #: Procedures: Echocardiographic Report: Transthoracic echocardiogram with complete 2D, M-Mode, and doppler examination. Indications: Elevated trop. Measurements: 2D/M Mode Doppler Measurement Value Normal Range Measurement Value Normal Range LVIDd 2D 5.6 [ 4.2 - 5.8 ] cm AV Peak Alexis 1.4 [ 100.0 - 170.0 ] cm/sec LVIDs 2D 4.8 [ 2.5 - 4.0 ] cm AV Peak PG 8.0 [ 2.0 - 9.0 ] mmHg LVPWd 2D 1.0 [ 0.6 - 1.0 ] cm LVOT Peak Alexis 1.3 [ 70.0 - 110.0 ] cm/sec IVSd 2D 1.0 [ 0.6 - 1.0 ] cm LVOT Peak PG 7.0 [ 2.0 - 6.0 ] mmHg IVS/LVPW 2D 1.0 ratio TR Peak Alexis 2.0 [ 100.0 - 280.0 ] cm/sec AoR Diam 2D 3.4 [ 2.6 - 3.4 ] cm TR Peak PG 16.0 mmHg LA/Ao 2D 1 ratio RVSP 19.0 [ 10.0 - 36.0 ] mmHg LA Dimen 2D 4.3 [ 3.0 - 4.0 ] cm RA Pressure 3.0 mmHg Findings: Left Ventricle: Normal left ventricular cavity size. Normal left ventricular wall thickness. Severe global left ventricular systolic dysfunction. Ejection fraction is visually estimated at 25-30 %. Abnormal Diastolic Function. Right Ventricle: Normal right ventricular size. Normal right ventricular systolic function. Left Atrium: There is mild enlargement of left atrium. Right Atrium: The right atrium is normal in size. Mitral Valve: Mitral valve leaflets appear mildly thickened. Mild mitral annular calcification. There is trace to mild mitral valve regurgitation. Aortic Valve: No significant aortic stenosis or insufficiency. Aortic cusps appear mildly calcified. Tricuspid Valve: Normal appearance and function of the tricuspid valve with trace physiologic regurgitation. Normal right ventricular systolic pressure. Pulmonic Valve: Normal pulmonic valve appearance. Pericardium: Normal pericardium with no significant pericardial effusion. Aorta: Normal aortic root. IVC: Normal size and normal respiratory collapse consistent with normal right atrial pressure. Conclusions: Normal left ventricular cavity size. Normal left ventricular wall thickness. Severe global left ventricular systolic dysfunction. Ejection fraction is visually estimated at 25-30 %. Abnormal Diastolic Function. n. There is mild enlargement of left atrium. Mitral valve leaflets appear mildly thickened. Mild mitral annular calcification. There is trace to mild mitral valve regurgitation. Normal appearance and function of the tricuspid valve with trace physiologic regurgitation. Normal right ventricular systolic pressure. Electronically Signed By: Darío Man 2018-08-08 13:25:03 PDT
[2018-08-08] MEDS ORDERED: HEPARIN 5,000 UNIT/1 ML VIAL SC SCH (14:00)
[2018-08-08] MEDS ORDERED: morphine 2 MG INJ IV STA (14:25)
[2018-08-08] MEDS ORDERED: HYDROmorphONE 1 MG/ML SYG IV ONE (15:30)
[2018-08-08] MEDS ORDERED: morphine 2 MG INJ IV PRN (17:00)
[2018-08-08] MEDS ORDERED: ZOLPIDEM 5 MG TAB PO PRN (17:00)
[2018-08-08] MEDS ORDERED: NACL 0.9% 3 ML SYG IV SCH (17:00)
[2018-08-08] MEDS ORDERED: VANCOMYCIN IV PER PHARMACY XX SCH (17:00)
--- NOTE | 2018-08-08 17:03 | HP ---
Date/Time of Note Date/Time of Note DATE: 08/08/18 TIME: 16:54 Assessment/Plan VTE Prophylaxis SCD applied (from Ns): Yes Pharmacological prophylaxis: NA/contraindicated Pharm contraindication: renal impairment Lines/Catheters Urinary Cath still in place: No Assessment/Plan Hospital Course 1. Fall with back pain Patient with known history of recurrent falls, patient lives alone at home and has refused care home placement the past PT evaluation Pain control 2. Severe hyperkalemia secondary to end-stage renal disease Emergent dialysis Nephrology consultation appreciated 3. Rhabdomyolysis secondary to fall IV fluids 4. Non-STEMI likely type II in setting of renal failure, rhabdomyolysis, trig eminy and distress Monitor 5. History of erythematous ulcers in the left hand Patient appears to have completed course of antibiotics 6. Leukocytosis May be reactive but will treat with empiric antibiotics 7. Acute metabolic/toxic encephalopathy Patient with poor baseline functional status but appears more confused like secondary to slight disturbance and/or infection Emergent HD today Empiric antibiotics 8. Diabetes Scheduled insulin and sliding scale 9. Trigeminy Dialysis and follow-up on repeat BMP Cardiology consultation tomorrow if persists Prophylaxis: SCDs Result Diagram: 08/08/18 0545 08/08/18 0545 Results 24hrs Laboratory Tests Test 08/08/18 05:16 08/08/18 05:45 08/08/18 06:11 08/08/18 06:43 Bedside Glucose 81 120 White Blood Count 18.4 #H Red Blood Count 3.89 #L Hemoglobin 10.7 #L Hematocrit 35.3 #L Mean Corpuscular 90.7 Volume Mean Corpuscular 27.5 L Hemoglobin Mean Corpuscular 30.3 L Hemoglobin Concent Red Cell 15.6 H Distribution Width Platelet Count 382 # Mean Platelet 8.7 Volume Immature 1.100 H Granulocytes % Neutrophils % 91.1 H Lymphocytes % 2.1 L Monocytes % 5.3 Eosinophils % 0.1 Basophils % 0.3 Nucleated Red 0.0 Blood Cells % Immature 0.200 H Granulocytes # Neutrophils # 16.7 H Lymphocytes # 0.4 L Monocytes # 1.0 H Eosinophils # 0.0 Basophils # 0.1 Nucleated Red 0.0 Blood Cells # Sodium Level 139 Potassium Level 7.8 *H Chloride Level 93 L Carbon Dioxide 23 Level Anion Gap 23 H Blood Urea 66 H Nitrogen Creatinine 10.45 H Est Glomerular 5 L Filtrat Rate mL/min Glucose Level 90 Calcium Level 8.7 Total Bilirubin 0.3 Direct Bilirubin 0.00 Indirect Bilirubin 0.3 Aspartate Amino 52 H Transf (AST/SGOT) Alanine 15 Aminotransferase ( ALT/SGPT) Alkaline 108 Phosphatase Troponin I 0.343 *H Total Protein 8.2 H Albumin 4.7 Globulin 3.50 H Albumin/Globulin 1.34 Ratio Lipase 50 Blood Gas Specimen Blood venous Source Arterial Blood 08/08/2018 7:20:59 Date Drawn AM Arterial Blood Gas VENOUS LINE Puncture Site Bradley Test N/A Mixed Venous Blood 7.169 L pH Mixed Venous Blood 60.9 H PCO2 Mixed Venous Blood 39.4 PO2 Mixed Venous Blood 21.7 L HCO3 Mixed Venous Blood -7.3 Base Excess Mixed Venous Blood 55.6 L O2 Saturation Mixed Venous Blood 11.7 Total Hemoglobin Mixed Venous 54.4 Blood Oxyhemoglobi n Mixed Venous 2.0 Bld Carboxyhemoglo bin Mixed Venous 0.2 Blood Methemoglobi n Blood Gas 37.0 Temperature Blood Gas Modality NASAL CANNULA FiO2 30.[address] REA Value Read Back Blood Gas Notified TM Whom Blood Gas Notified 08/08/2018 7:35:33 Time AM Test 08/08/18 07:16 08/08/18 07:25 08/08/18 08:24 08/08/18 08:25 POC Venous Lactate 1.6 Bedside Glucose 254 H Hepatitis B NEGATIVE Surface Antigen Hepatitis B NEGATIVE Surface Antibody Creatine Kinase 7962 H Creatine Kinase 0.5 Index Creatinine Kinase 40.10 H MB (Mass) Troponin I 0.287 *H Test 08/08/18 10:42 08/08/18 15:15 Lactic Acid Level 1.4 Creatine Kinase 17053 #H Creatine Kinase 0.3 Index Creatinine Kinase 75.10 H MB (Mass) Troponin I 0.490 *H HPI/ROS Admit Date/Time Admit Date/Time Aug 08, 2018 at 07:17 Hx of Present Illness Patient is a 57-year-old male with history of coronary disease status post CABG, hypertension, diabetes as well as end-stage renal disease with dialysis Wednesday, Wednesday. Patient was recently hospitalized after having missed dialysis, patient does have a history of falls and prior hospitalist did try to place in care home but patient refused. patient's mentation was intact and hence his wishes were respected. During the previous hospitalization patient was noted to have erythematous ulcers on his left hand with restricted range of motion, patient was discharged with antibiotics.Patient presents today after a fall with subsequent back pain. Patient's potassium was once again found to be severely elevated and patient was reporting significant back pain. Patient is currently slightly confused history is in part obtained from past documentation. ROS Constitutional: disoriented Eyes: no complaints ENT: no complaints Respiratory: no complaints Cardiovascular: no complaints Gastrointestinal: no complaints Genitourinary: no complaints Musculoskeletal: back pain Skin: no complaints Neurologic: no complaints PMH/Family/Social Past Medical History As per [facility] Medications Current Medications Dextrose (D50w Syringe) ONCE PRN IV DECREASED GLUCOSE Last administered on 08/08/18at 06:52; Admin Dose 100 ML; Start 08/08/18 at 07:00 Ondansetron HCl (Zofran Inj) 4 mg Q4 PRN IV NAUSEA AND/OR VOMITING; Start 08/08/18 at 07:30 Albuterol (Proventil 0.083% (Neb)) 2.5 mg Q2H RESP THERAPY PRN NEB SHORTNESS OF BREATH; Start 08/08/18 at 07:30 Ipratropium [place] (Atrovent 0.02% (Neb)) 0.5 mg Q2H RESP THERAPY PRN NEB SHORTNESS OF BREATH; Start 08/08/18 at 07:30 Acetaminophen (Tylenol Tab) 650 mg Q6H PRN PO PAIN LEVEL 1-3 OR FEVER; Start 08/08/18 at 07:30 Morphine Sulfate (morphine) 2 mg Q4H PRN IV PAIN LEVEL 7-10 Last administered on 08/08/18at 14:25; Admin Dose 2 MG; Start 08/08/18 at 07:30 Docusate Sodium (Colace) 100 mg Q12H PRN PO CONSTIPATION; Start 08/08/18 at 07:30 Bisacodyl (Dulcolax) 5 mg DAILY PRN PO CONSTIPATION; Start 08/08/18 at 07:30 Famotidine (Pepcid Iv) 20 mg DAILY IV Last administered on 08/08/18at 10:44; Admin Dose 20 MG; Start 08/08/18 at 09:00 Heparin Sodium (Porcine) (Heparin (5000 Units/1ml)) 5,000 unit Q8 SC Last admi nistered on 08/08/18at 14:54; Admin Dose 5,000 UNIT; Start 08/08/18 at 14:00 Coded Allergies: amoxicillin (Unverified Allergy, Unknown, 08/08/18) Uncoded Allergies: STEROIDS (Allergy, Unknown, 08/08/18) Past Surgical History Past Surgical Hx: coronary bypass surgery Family History Significant Family History: no pertinent family hx Social History Alcohol Use: rarely Smoking Status: Current every day smoker Drug Use: none Exam/Review of Systems Vital Signs Vitals Vital Signs Date Temp Pulse Resp B/P (MAP) Pulse Ox O2 O2 Flow FiO2 Time Delivery Rate 08/08/18 90 16:00 08/08/18 18 100 15:30 08/08/18 119/67 Nasal 15:01 (84) Cannula 08/08/18 2.0 13:30 08/08/18 97.8 12:00 Exam Constitutional: alert Psych: confusion Respiratory: clear to auscultation Cardiovascular: regular rate and rhythm Gastrointestinal: soft; No distended Musculoskeletal: No nl extremities to inspection MARCO LEIVA Aug 08, 2018 17:03
[2018-08-08] MEDS: SOD CHLORIDE 0.9% 1,000 ML IV SCH (17:51)
[2018-08-08] MEDS ORDERED: GLUCOSE GEL 15 GRAM TUBE PO PRN ×2 (18:00)
[2018-08-08] MEDS ORDERED: GLUCOSE GEL 15 GRAM TUBE BUCCAL PRN (18:00)
[2018-08-08] MEDS ORDERED: GLUCAGON 1 MG INJ IM PRN (18:00)
[2018-08-08] MEDS ORDERED: LEVOFLOXACIN 500MG/D5W (PMX) 100 ML IVPB ONE (18:30)
[2018-08-08] MEDS: INSULIN ASPART [NOVOLOG] 3 ML PEN SC SCH ×2 (18:30→22:07)
[2018-08-08] MEDS: ATORVASTATIN 40 MG TAB PO SCH (21:48)
[2018-08-08] MEDS: GABAPENTIN 300 MG CAP PO SCH (21:48)
[2018-08-08] MEDS ORDERED: PIPER-TAZO 3.375 GM IV (PMX) 100 ML IVPB SCH (22:00)
[2018-08-08] MEDS: HEPARIN 5,000 UNIT/1 ML VIAL SC SCH (22:07)
[2018-08-08] MEDS: INSULIN GLARGINE [LANTus] (100 UNITS/ML) SYG SC SCH (22:08)
[2018-08-08] MEDS ORDERED: morphine 4 MG/ML VIAL IV ONE (23:30)
[2018-08-08] MEDS ORDERED: SODIUM POLYSTYRENE 15 GM KIT (POWDER + SORBITOL) PO ONE (23:30)
[2018-08-09] VITALS (60 sets, daily range): BP systolic 60–132; BP diastolic 36–117; PULSE 84–110; RESP 12–31
[2018-08-09] MEDS: ACCU-CHEK XX SCH (02:00)
[2018-08-09] MEDS: INSULIN ASPART [NOVOLOG] 3 ML PEN SC SCH ×4 (02:40→20:54)
[2018-08-09] MEDS ORDERED: PENDING SANTYL ORDER FOR WOUND CARE XX PRN (06:00)
[2018-08-09] MEDS ORDERED: SODIUM POLYSTYRENE 15 GM KIT (POWDER + SORBITOL) PO ONE (06:30)
--- NOTE | 2018-08-09 08:20 | PN ---
DATE: 08/09/2018 SUBJECTIVE: The patient had hemodialysis yesterday. Dialysis was complicated due to episodes of arr hythmia. The patient's blood flow rates and ultrafiltration electrolytes were adjusted. The patient currently remains confused, stable. No other events noted. OBJECTIVE: VITAL SIGNS: Blood pressure is 121/105, respirations 16, pulse 103, temperature is 100.3. HEENT: Head is normocephalic. NECK: Supple. HEART: Regular rate. LUNGS: Show diminished breath sounds at the base. ABDOMEN: Soft, nontender to palpation without rebound or guarding. EXTREMITIES: Negative for clubbing, cyanosis. Positive wounds. DERMATOLOGIC: No rashes. MUSCULOSKELETAL: No joint effusion. NEUROLOGIC: No change in exam. MEDICATIONS: Have been reviewed. LABORATORY DATA: Has been reviewed. IMAGING STUDIES: Have been reviewed. ASSESSMENT AND PLAN: 1. End-stage renal disease. The patient had urgent hemodialysis yesterday. Plan for dialysis again today and tomorrow for solute clearance. The patient will be dialyzed 3.5 hours on 2k bath, calcium 2.5. 2. Hyperkalemia secondary to end-stage renal disease. Continue dialysis on low potassium bath. 3. Anemia. Monitor hemoglobin and hematocrit levels. Will give Epogen as needed. 4. Mineral bone disorder. The patient is markedly hyperphosphatemic. Will continue dialysis. Cont inue phos binders as tolerated. 5. Systemic inflammatory response syndrome, sepsis. Possible source unclear, questionable pneumonia . Continue current antibiotic regimen. 6. Syncope, etiology is unclear. Continue to monitor. Follow up with neurology. 7. History of coronary artery disease, history of coronary artery bypass graft. Continue medical ma nagement. 8. Hypertension. Continue to monitor. 9. Dyslipidemia. Continue statin therapy. 10. History of tobacco use. 11. Arrhythmia, trigeminy, episodes of V-tach. Continue to monitor. Follow up with cardiology. 12. Rhabdomyolysis. Continue to monitor. Continue hemodialysis. Continue to trend CK levels. Und erlying etiology is unclear, possibly due to trauma. Dictated By: LIBBY LOVE DO NR/NTS Conf#: [id number] DID#: [id number] CC: GARRICK SOLANO MD;*EndCC*
[2018-08-09] MEDS: FUROSEMIDE 40 MG TAB PO SCH (09:00)
[2018-08-09] MEDS: HEPARIN 5,000 UNIT/1 ML VIAL SC SCH ×2 (09:00→21:06)
[2018-08-09] MEDS: ISOSORBIDE MONONITRATE(SR)30 MG TAB PO SCH (10:01)
[2018-08-09] MEDS: GABAPENTIN 300 MG CAP PO SCH ×3 (10:02→20:54)
[2018-08-09] MEDS: PRASUGREL HYDROCHLORIDE 10 MG TABLET PO SCH (10:02)
[2018-08-09] MEDS: HYDROCODONE/APAP (5/325) TAB PO PRN (10:03)
[2018-08-09] MEDS: ASPIRIN (EC) 81 MG TAB PO SCH (10:03)
[2018-08-09] MEDS: FAMOTIDINE 20 MG INJ IV SCH (10:05)
[2018-08-09] MEDS ORDERED: ALBUMIN HUMAN 25% 100 ML IV ONE ×2 (11:30)
[2018-08-09] MEDS ORDERED: MIDODRINE 5 MG TAB PO ONE (11:30)
--- NOTE | 2018-08-09 15:07 | PN ---
Date/Time of Note Date/Time of Note DATE: 08/09/18 TIME: 15:04 Assessment/Plan VTE Prophylaxis Risk score (from Nsg)>0 risk: 2 SCD applied (from Ns): Yes Pharmacological prophylaxis: NA/contraindicated Pharm contraindication: renal impairment Lines/Catheters IV Catheter Type (from Nrsg): [place] Lock Urinary Cath still in place: No Assessment/Plan Hospital Course 1. Fall with back pain Patient with known history of recurrent falls, patient lives alone at home and has refused alf placement the past PT evaluation Pain control 2. Severe hyperkalemia secondary to end-stage renal disease Status post emergent dialysis Nephrology consultation appreciated 3. Rhabdomyolysis secondary to fall IV fluids 4. Non-STEMI likely type II in setting of renal failure, rhabdomyolysis, trigeminy and distress Troponins are stable 5. History of erythematous ulcers in the left hand status post amputation of digit at [place] Follow-up with physicians at [place] 6. Leukocytosis May be reactive but will treat with empiric antibiotics 7. Acute metabolic/toxic encephalopathy Patient with poor baseline functional status but appears more confused like secondary to electrolyte disturbance and/or infection Status post emergent HD Empiric antibiotics Patient with history of opiate abuse according to brother, have discontinued morphine 8. Diabetes Scheduled insulin and sliding scale 9. Trigeminy-resolved Status post dialysis 10. Opioid abuse According to brother patient does abuse prescribed opiates, DC morphine Prophylaxis: SCDs Result Diagram: 08/09/18 0423 08/09/18 0435 Results 24hrs Laboratory Tests Test 08/08/18 15:15 08/08/18 16:59 08/08/18 18:12 08/08/18 19:28 Creatine Kinase 34059 #H Creatine Kinase Index 0.3 Creatinine Kinase MB 75.10 H (Mass) Troponin I 0.490 *H Sodium Level 137 Potassium Level 5.7 #H Chloride Level 95 L Carbon Dioxide Level 25 Anion Gap 17 H Blood Urea Nitrogen 33 #H Creatinine 5.81 #H Est Glomerular Filtrat 10 L Rate mL/min Glucose Level 169 Calcium Level 8.3 L Bedside Glucose 158 180 Test 08/08/18 21:24 08/08/18 21:41 08/09/18 02:39 08/09/18 04:22 Creatine Kinase 67170 #H Creatine Kinase Index 0.3 Creatinine Kinase MB 76.30 H (Mass) Troponin I 0.471 *H Bedside Glucose 234 H 178 Hemoglobin A1c 5.7 Test 08/09/18 04:23 08/09/18 04:35 08/09/18 13:47 White Blood Count 12.3 #H Red Blood Count 3.40 L Hemoglobin 9.4 L Hematocrit 30.7 L Mean Corpuscular Volume 90.3 Mean Corpuscular 27.6 L Hemoglobin Mean Corpuscular 30.6 L Hemoglobin Concent Red Cell Distribution 15.9 H Width Platelet Count 280 # Mean Platelet Volume 8.7 Immature Granulocytes % 0.600 H Neutrophils % 88.3 H Lymphocytes % 3.2 L Monocytes % 7.3 Eosinophils % 0.3 Basophils % 0.3 Nucleated Red Blood 0.0 Cells % Immature Granulocytes # 0.070 H Neutrophils # 10.8 H Lymphocytes # 0.4 L Monocytes # 0.9 Eosinophils # 0.0 Basophils # 0.0 Nucleated Red Blood 0.0 Cells # Sodium Level 138 Potassium Level 6.1 *H Chloride Level 96 L Carbon Dioxide Level 27 Anion Gap 15 H Blood Urea Nitrogen 41 H Creatinine 6.94 H Est Glomerular Filtrat 8 L Rate mL/min Glucose Level 168 Calcium Level 7.9 L Phosphorus Level 9.2 H Magnesium Level 2.5 Bedside Glucose 110 Subjective 24 Hr Interval Summary Constitutional: no complaints Exam/Review of Systems Exam Vitals Vital Signs Date Temp Pulse Resp B/P (MAP) Pulse Ox O2 O2 Flow FiO2 Time Delivery Rate 08/09/18 99 16 114/66 100 Nasal 2.0 14:50 (82) Cannula 08/09/18 99.7 05:54 Intake and Output 08/08/18 08/08/18 08/09/18 1414:59 22:59 06:59 IntakeIntake Total 200 ml 190 ml 320 ml OutputOutput Total 640 ml 0 ml 0 ml BalanceBalance -440 ml 190 ml 320 ml Constitutional: alert Respiratory: clear to auscultation Cardiovascular: regular rate and rhythm Gastrointestinal: soft; No distended Musculoskeletal: nl extremities to inspection Results Results 24hrs Laboratory Tests Test 08/08/18 15:15 08/08/18 16:59 08/08/18 18:12 08/08/18 19:28 Creatine Kinase 23205 #H Creatine Kinase Index 0.3 Creatinine Kinase MB 75.10 H (Mass) Troponin I 0.490 *H Sodium Level 137 Potassium Level 5.7 #H Chloride Level 95 L Carbon Dioxide Level 25 Anion Gap 17 H Blood Urea Nitrogen 33 #H Creatinine 5.81 #H Est Glomerular Filtrat 10 L Rate mL/min Glucose Level 169 Calcium Level 8.3 L Bedside Glucose 158 180 Test 08/08/18 21:24 08/08/18 21:41 08/09/18 02:39 08/09/18 04:22 Creatine Kinase 96209 #H Creatine Kinase Index 0.3 Creatinine Kinase MB 76.30 H (Mass) Troponin I 0.471 *H Bedside Glucose 234 H 178 Hemoglobin A1c 5.7 Test 08/09/18 04:23 08/09/18 04:35 08/09/18 13:47 White Blood Count 12.3 #H Red Blood Count 3.40 L Hemoglobin 9.4 L Hematocrit 30.7 L Mean Corpuscular Volume 90.3 Mean Corpuscular 27.6 L Hemoglobin Mean Corpuscular 30.6 L Hemoglobin Concent Red Cell Distribution 15.9 H Width Platelet Count 280 # Mean Platelet Volume 8.7 Immature Granulocytes % 0.600 H Neutrophils % 88.3 H Lymphocytes % 3.2 L Monocytes % 7.3 Eosinophils % 0.3 Basophils % 0.3 Nucleated Red Blood 0.0 Cells % Immature Granulocytes # 0.070 H Neutrophils # 10.8 H Lymphocytes # 0.4 L Monocytes # 0.9 Eosinophils # 0.0 Basophils # 0.0 Nucleated Red Blood 0.0 Cells # Sodium Level 138 Potassium Level 6.1 *H Chloride Level 96 L Carbon Dioxide Level 27 Anion Gap 15 H Blood Urea Nitrogen 41 H Creatinine 6.94 H Est Glomerular Filtrat 8 L Rate mL/min Glucose Level 168 Calcium Level 7.9 L Phosphorus Level 9.2 H Magnesium Level 2.5 Bedside Glucose 110 Medications Medication Current Medications Albuterol (Proventil 0.083% (Neb)) 2.5 mg Q2H RESP THERAPY PRN NEB SHORTNESS OF BREATH Last administered on 08/09/18at 00:34; Admin Dose 2.5 MG; Start 08/08/18 at 07:30 Ipratropium [place] (Atrovent 0.02% (Neb)) 0.5 mg Q2H RESP THERAPY PRN NEB SHORTNESS OF BREATH Last administered on 08/09/18at 00:34; Admin Dose 0.5 MG; Start 08/08/18 at 07:30 Bisacodyl (Dulcolax) 5 mg DAILY PRN PO CONSTIPATION; Start 08/08/18 at 07:30 Sodium Chloride 1,000 ml @ 40 mls/hr Q24H IV Last administered on 08/08/18at 17:51; Admin Dose 40 MLS/HR; Start 08/08/18 at 16:59 IV Flush (NS 3 ml) 3 ml PER PROTOCOL IV ; Start 08/08/18 at 17:00 Ondansetron HCl (Zofran Inj) 4 mg Q6H PRN IV NAUSEA/VOMITING; Start 08/08/18 at 17:00 Acetaminophen (Tylenol Tab) 650 mg Q6H PRN PO .PAIN 1-3 OR TEMP Last admi nistered on 08/09/18at 05:09; Admin Dose 650 MG; Start 08/08/18 at 17:00 Acetaminophen/ Hydrocodone Bitart ([place] (5/325)) 1 tab Q6H PRN PO .MOD PAIN 4- 6 Last administered on 08/09/18at 10:03; Admin Dose 1 TAB; Start 08/08/18 at 17:00 Docusate Sodium (Colace) 100 mg Q12H PRN PO .CONSTIPATION; Start 08/08/18 at 17:00 Zolpidem Tartrate (Ambien) 5 mg QHS PRN PO .INSOMNIA; Start 08/08/18 at 17:00 Heparin Sodium (Porcine) (Heparin (5000 Units/1ml)) 5,000 unit Q12 SC Last administered on 08/09/18at 09:00; Admin Dose 5,000 UNIT; Start 08/08/18 at 21:00 Aspirin (Halfprin) 81 mg DAILY PO Last administered on 08/09/18at 10:03; Admin Dose 81 MG; Start 08/09/18 at 09:00 Atorvastatin Calcium (Lipitor) 40 mg HS PO Last administered on 08/08/18at 21:48; Admin Dose 40 MG; Start 08/08/18 at 21:00 Carvedilol (Coreg) 3.125 mg BID PO ; Start 08/08/18 at 21:00 Furosemide (Lasix) 80 mg DAILY PO ; Start 08/09/18 at 09:00 Gabapentin (Neurontin) 300 mg TID PO Last administered on 08/09/18at 14:03; Admin Dose 300 MG; Start 08/08/18 at 21:00 Isosorbide Mononitrate (Imdur) 30 mg DAILY PO Last administered on 08/09/18at 10:01; Admin Dose 30 MG; Start 08/09/18 at 09:00 Prasugrel (Effient) 10 mg DAILY PO Last administered on 08/09/18at 10:02; Admin Dose 10 MG; Start 08/09/18 at 09:00 Diagnostic Test (Pha) (Accu-Chek) 1 ea 02 XX ; Start 08/09/18 at 02:00 Insulin Glargine (Lantus) 8 units DAILY@2000 SC Last administered on 08/08/18at 22:08; Admin Dose 8 UNITS; Start 08/08/18 at 20:00 Insulin Aspart (Novolog Insulin Pen) NOVOLOG *MILD* ALGORITHM WITH MEALS BEDTIME SC Last administered on 08/08/18at 22:07; Admin Dose 2 UNIT; Start 08/08/18 at 18:30 Vancomycin HCl (Vanco Iv Per Pharmacy) VANCOMYCIN PER PHARMACY PER PROTOCOL XX ; Start 08/08/18 at 17:00 Miscellaneous Information 1 ea NOTE XX ; Start 08/08/18 at 18:00 Glucose (Glutose) 15 gm Q15M PRN PO DECREASED GLUCOSE; Start 08/08/18 at 18:00 Glucose (Glutose) 22.5 gm Q15M PRN PO DECREASED GLUCOSE; Start 08/08/18 at 18:00 Dextrose (D50w Syringe) 25 ml Q15M PRN IV DECREASED GLUCOSE; Start 08/08/18 at 18:00 Dextrose (D50w Syringe) 50 ml Q15M PRN IV DECREASED GLUCOSE; Start 08/08/18 at 18:00 Glucagon (Glucagen) 1 mg Q15M PRN IM DECREASED GLUCOSE; Start 08/08/18 at 18:00 Glucose (Glutose) 15 gm Q15M PRN BUCCAL DECREASED GLUCOSE; Start 08/08/18 at 18:00 Levofloxacin/ Dextrose 50 ml @ 50 mls/hr Q48H IVPB ; Start 08/10/18 at 18:30 Miscellaneous Information (Pending [facility] Order For Wound Care) This patient brooks... PRN PRN XX WOUND CARE; Start 08/09/18 at 06:00 Midodrine (Proamatine) 5 mg BID@09,17 PO ; Start 08/09/18 at 17:00 Famotidine (Pepcid) 20 mg DAILY PO ; Start 08/10/18 at 09:00 Miscellaneous Information (*Rx Drug Level Order Reminder*) RANDOM VANCO LEVEL ... 0500 ONCE XX ; Start 08/10/18 at 05:00; Stop 08/10/18 at 05:01 MARCO LEIVA Aug 09, 2018 15:07
[2018-08-09] MEDS: SOD CHLORIDE 0.9% 1,000 ML IV SCH (17:06)
[2018-08-09] MEDS: MIDODRINE 5 MG TAB PO SCH (17:07)
[2018-08-09] MEDS: ATORVASTATIN 40 MG TAB PO SCH (20:54)
[2018-08-09] MEDS: INSULIN GLARGINE [LANTus] (100 UNITS/ML) SYG SC SCH (21:08)
[2018-08-10] VITALS (43 sets, daily range): BP systolic 53–154; BP diastolic 31–105; PULSE 0–224; RESP 9–114
[2018-08-10] MEDS ORDERED: LIDOCAINE 100 MG SYRINGE ONE
[2018-08-10] MEDS ORDERED: MAGNESIUM SULFATE 1 GM/100 ML D5W IVPB ONE
[2018-08-10] MEDS ORDERED: NA BICARBONATE 8.4% 50 ML SYG ONE
[2018-08-10] MEDS ORDERED: AMIODARONE 150 MG INJ ONE
[2018-08-10] MEDS ORDERED: EPINEPHrine 0.1 MG/ML SYG ONE
[2018-08-10] MEDS: ACCU-CHEK XX SCH (02:00)
[2018-08-10] MEDS: INSULIN ASPART [NOVOLOG] 3 ML PEN SC SCH ×2 (07:35→11:50)
[2018-08-10] MEDS: SEVELAMER CARBONATE 800 MG TABLET PO SCH ×3 (08:44→11:30)
[2018-08-10] MEDS: GABAPENTIN 300 MG CAP PO SCH ×2 (08:44→13:29)
[2018-08-10] MEDS: MIDODRINE 5 MG TAB PO SCH ×2 (08:45→09:00)
[2018-08-10] MEDS: ASPIRIN (EC) 81 MG TAB PO SCH (08:45)
[2018-08-10] MEDS: FUROSEMIDE 40 MG TAB PO SCH (08:45)
[2018-08-10] MEDS: ISOSORBIDE MONONITRATE(SR)30 MG TAB PO SCH ×2 (08:45→09:00)
[2018-08-10] MEDS: HYDROCODONE/APAP (5/325) TAB PO PRN (08:46)
[2018-08-10] MEDS: PRASUGREL HYDROCHLORIDE 10 MG TABLET PO SCH (08:47)
--- NOTE | 2018-08-10 08:51 | PN ---
DATE: 08/10/2018 SUBJECTIVE: The patient remains in serious, but stable condition. No other events noted. No hemopt ysis, hematemesis or hematochezia. OBJECTIVE: VITAL SIGNS: Blood pressure is 101/40, respirations 20, pulse temperature 98.1. HEENT: Head is normocephalic. NECK: Supple. HEART: Regular rate. LUNGS: Show diminished breath sounds at the base. ABDOMEN: Soft, nontender to palpation without rebound or guarding. EXTREMITIES: Negative for clubbing or cyanosis. No edema. DERMATOLOGIC: No rashes. MUSCULOSKELETAL: No joint effusion. NEUROLOGIC: No change in exam. MEDICATIONS: The patient's medication have been reviewed. LABORATORY DATA: Has been reviewed. IMAGING STUDIES: Have been reviewed. ASSESSMENT AND PLAN: 1. End-stage renal disease. The patient has had hemodialysis yesterday. Will have dialysis again t cy for solute clearance. 2. Hyperkalemia, improving, etiology secondary to end-stage renal disease with possible component of rhabdomyolysis. The patient's potassium levels have been improving. Continue dialysis on low potas sium bath. 3. Anemia. Monitor hemoglobin and hematocrit levels. We will give Epogen as needed. 4. Mineral bone disorder. The patient remains hyperphosphatemic. Continue hemodialysis. Continue phos binders as tolerated. 5. Systemic inflammatory response syndrome, questionable pneumonia. The patient is on empiric antib iotics. Will continue. 6. Syncope, currently stable, no further episodes. Continue to monitor. 7. History of coronary artery disease and coronary artery bypass grafting. Continue medical managem ent. 8. Hypertension. Continue to monitor. Blood pressure well controlled. 9. Dyslipidemia. Continue statin therapy. 10. Arrhythmia, improved. Continue to monitor. Follow up with cardiology. 11. Rhabdomyolysis, likely secondary to trauma. CK levels will improve with ongoing hemodialysis. Continue to observe. Dictated By: LIBBY LOVE DO NR/NTS Conf#: [id number] DID#: [id number] CC: MARTY MCFADDEN MD; GARRICK SOLANO MD; MARCO LEIVA MD;*EndCC*
[2018-08-10] MEDS: HEPARIN 5,000 UNIT/1 ML VIAL SC SCH (08:59)
[2018-08-10] MEDS ORDERED: FAMOTIDINE 20 MG TAB PO SCH (09:00)
[2018-08-10] MEDS ORDERED: VANCOMYCIN 1 GM 250 ML IVPB SCH (13:00)
--- NOTE | 2018-08-10 14:29 | PN ---
Date/Time of Note Date/Time of Note DATE: 08/10/18 TIME: 14:20 Assessment/Plan VTE Prophylaxis Risk score (from Ns)>0 risk: 8 SCD applied (from [facility]): Yes Pharmacological prophylaxis: NA/contraindicated Pharm contraindication: renal impairment Lines/Catheters Urinary Cath still in place: No Assessment/Plan Hospital Course 1. Fall with back pain Patient with known history of recurrent falls, patient lives alone at home and has refused half-way placement the past PT evaluation Pain control 2. Severe hyperkalemia secondary to end-stage renal disease Status post emergent dialysis Nephrology consultation appreciated 3. Rhabdomyolysis secondary to fall IV fluids 4. Non-STEMI likely type II in setting of renal failure, rhabdomyolysis, trigeminy and distress Troponins are stable 5. History of erythematous ulcers in the left hand status post amputation of digit at [place] Follow-up with physicians at [place] 6. Leukocytosis May be reactive but will continue empiric antibiotics, consider discontinuing tomorrow 7. Acute metabolic/toxic encephalopathy Patient with poor baseline functional status but appears more confused like secondary to electrolyte disturbance and/or infection Status post emergent HD Empiric antibiotics Patient with history of opiate abuse according to brother, have discontinued morphine and [place] 8. Diabetes Scheduled insulin and sliding scale 9. Trigeminy-resolved Status post dialysis 10. Opioid abuse According to brother patient does abuse prescribed opiates, DC morphine and [place] Prophylaxis: SCDs DC planning: Downgrade to telemetry Result Diagram: 08/10/18 0500 08/10/18 0500 Results 24hrs Laboratory Tests Test 08/09/18 17:05 08/09/18 20:52 08/10/18 02:23 08/10/18 05:00 Bedside Glucose 101 139 125 White Blood Count 12.6 H Red Blood Count 3.11 L Hemoglobin 8.6 L Hematocrit 28.8 L Mean Corpuscular Volume 92.6 Mean Corpuscular 27.7 L Hemoglobin Mean Corpuscular 29.9 L Hemoglobin Concent Red Cell Distribution 15.7 H Width Platelet Count 276 Mean Platelet Volume 8.8 Immature Granulocytes % 0.600 H Neutrophils % 85.1 H Lymphocytes % 4.5 L Monocytes % 9.0 Eosinophils % 0.4 Basophils % 0.4 Nucleated Red Blood 0.0 Cells % Immature Granulocytes # 0.080 H Neutrophils # 10.7 H Lymphocytes # 0.6 L Monocytes # 1.1 H Eosinophils # 0.1 Basophils # 0.1 Nucleated Red Blood 0.0 Cells # Sodium Level 141 Potassium Level 5.2 H Chloride Level 97 Carbon Dioxide Level 28 Anion Gap 16 H Blood Urea Nitrogen 31 H Creatinine 5.16 H Est Glomerular Filtrat 12 L Rate mL/min Glucose Level 135 Calcium Level 8.5 Phosphorus Level 7.9 H Magnesium Level 2.4 Random Vancomycin Level 11.8 Test 08/10/18 08:50 08/10/18 11:43 Bedside Glucose 120 206 Subjective 24 Hr Interval Summary Constitutional: disoriented Exam/Review of Systems Exam Vitals Vital Signs Date Temp Pulse Resp B/P (MAP) Pulse Ox O2 O2 Flow FiO2 Time Delivery Rate 08/10/18 100 12:00 08/10/18 27 116/38 Nasal 2.0 10:00 (64) Cannula 08/10/18 97 09:00 08/10/18 98.9 08:00 Intake and Output 08/09/18 08/09/18 08/10/18 1414:59 22:59 06:59 IntakeIntake Total 320 ml 390 ml 860 ml OutputOutput Total 2600 ml 0 ml 0 ml BalanceBalance -2280 ml 390 ml 860 ml Constitutional: alert Psych: confusion Respiratory: clear to auscultation Gastrointestinal: soft; No distended Musculoskeletal: nl extremities to inspection Results Results 24hrs Laboratory Tests Test 08/09/18 17:05 08/09/18 20:52 08/10/18 02:23 08/10/18 05:00 Bedside Glucose 101 139 125 White Blood Count 12.6 H Red Blood Count 3.11 L Hemoglobin 8.6 L Hematocrit 28.8 L Mean Corpuscular Volume 92.6 Mean Corpuscular 27.7 L Hemoglobin Mean Corpuscular 29.9 L Hemoglobin Concent Red Cell Distribution 15.7 H Width Platelet Count 276 Mean Platelet Volume 8.8 Immature Granulocytes % 0.600 H Neutrophils % 85.1 H Lymphocytes % 4.5 L Monocytes % 9.0 Eosinophils % 0.4 Basophils % 0.4 Nucleated Red Blood 0.0 Cells % Immature Granulocytes # 0.080 H Neutrophils # 10.7 H Lymphocytes # 0.6 L Monocytes # 1.1 H Eosinophils # 0.1 Basophils # 0.1 Nucleated Red Blood 0.0 Cells # Sodium Level 141 Potassium Level 5.2 H Chloride Level 97 Carbon Dioxide Level 28 Anion Gap 16 H Blood Urea Nitrogen 31 H Creatinine 5.16 H Est Glomerular Filtrat 12 L Rate mL/min Glucose Level 135 Calcium Level 8.5 Phosphorus Level 7.9 H Magnesium Level 2.4 Random Vancomycin Level 11.8 Test 08/10/18 08:50 08/10/18 11:43 Bedside Glucose 120 206 Medications Medication Current Medications Albuterol (Proventil 0.083% (Neb)) 2.5 mg Q2H RESP THERAPY PRN NEB SHORTNESS OF BREATH Last administered on 08/09/18at 00:34; Admin Dose 2.5 MG; Start 08/08/18 at 07:30 Ipratropium [place] (Atrovent 0.02% (Neb)) 0.5 mg Q2H RESP THERAPY PRN NEB SHORTNESS OF BREATH Last administered on 08/09/18at 00:34; Admin Dose 0.5 MG; Start 08/08/18 at 07:30 Bisacodyl (Dulcolax) 5 mg DAILY PRN PO CONSTIPATION; Start 08/08/18 at 07:30 Sodium Chloride 1,000 ml @ 40 mls/hr Q24H IV Last administered on 08/09/18 17:06; Admin Dose 40 MLS/HR; Start 08/08/18 at 16:59 IV Flush (NS 3 ml) 3 ml PER PROTOCOL IV ; Start 08/08/18 at 17:00 Ondansetron HCl (Zofran Inj) 4 mg Q6H PRN IV NAUSEA/VOMITING; Start 08/08/18 at 17:00 Acetaminophen (Tylenol Tab) 650 mg Q6H PRN PO .PAIN 1-3 OR TEMP Last administered on 08/09/18at 05:09; Admin Dose 650 MG; Start 08/08/18 at 17:00 Docusate Sodium (Colace) 100 mg Q12H PRN PO .CONSTIPATION; Start 08/08/18 at 17:00 Heparin Sodium (Porcine) (Heparin (5000 Units/1ml)) 5,000 unit Q12 SC Last adm inistered on 08/10/18 08:59; Admin Dose 5,000 UNIT; Start 08/08/18 at 21:00 Aspirin (Halfprin) 81 mg DAILY PO Last administered on 08/10/18 08:45; Admin Dose 81 MG; Start 08/09/18 at 09:00 Atorvastatin Calcium (Lipitor) 40 mg HS PO Last administered on 08/09/18at 20:54; Admin Dose 40 MG; Start 08/08/18 at 21:00 Carvedilol (Coreg) 3.125 mg BID PO ; Start 08/08/18 at 21:00 Furosemide (Lasix) 80 mg DAILY PO Last administered on 08/10/18at 08:45; Admin Dose 80 MG; Start 08/09/18 at 09:00 Gabapentin (Neurontin) 300 mg TID PO Last administered on 08/10/18at 13:29; Admin Dose 300 MG; Start 08/08/18 at 21:00 Isosorbide Mononitrate (Imdur) 30 mg DAILY PO Last administered on 08/09/18at 10:01; Admin Dose 30 MG; Start 08/09/18 at 09:00 Prasugrel (Effient) 10 mg DAILY PO Last administered on 08/10/18at 08:47; Admin Dose 10 MG; Start 08/09/18 at 09:00 Diagnostic Test (Pha) (Accu-Chek) 1 ea 02 XX ; Start 08/09/18 at 02:00 Insulin Glargine (Lantus) 8 units DAILY@2000 SC Last administered on 08/09/18at 21:08; Admin Dose 8 UNITS; Start 08/08/18 at 20:00 Insulin Aspart (Novolog Insulin Pen) NOVOLOG *MILD* ALGORITHM WITH MEALS BEDTIME SC Last administered on 08/10/18at 11:50; Admin Dose 2 UNIT; Start 08/08/18 at 18:30 Vancomycin HCl (Vanco Iv Per Pharmacy) VANCOMYCIN PER PHARMACY PER PROTOCOL XX ; Start 08/08/18 at 17:00 Miscellaneous Information 1 ea NOTE XX ; Start 08/08/18 at 18:00 Glucose (Glutose) 15 gm Q15M PRN PO DECREASED GLUCOSE; Start 08/08/18 at 18:00 Glucose (Glutose) 22.5 gm Q15M PRN PO DECREASED GLUCOSE; Start 08/08/18 at 18:00 Dextrose (D50w Syringe) 25 ml Q15M PRN IV DECREASED GLUCOSE; Start 08/08/18 at 18:00 Dextrose (D50w Syringe) 50 ml Q15M PRN IV DECREASED GLUCOSE; Start 08/08/18 at 18:00 Glucagon (Glucagen) 1 mg Q15M PRN IM DECREASED GLUCOSE; Start 08/08/18 at 18:00 Glucose (Glutose) 15 gm Q15M PRN BUCCAL DECREASED GLUCOSE; Start 08/08/18 at 18:00 Levofloxacin/ Dextrose 50 ml @ 50 mls/hr Q48H IVPB ; Start 08/10/18 at 18:30 Miscellaneous Information (Pending [facility] Order For Wound Care) This patient brooks... PRN PRN XX WOUND CARE; Start 08/09/18 at 06:00 Midodrine (Proamatine) 5 mg BID@09,17 PO Last administered on 08/09/18at 17:07; Admin Dose 5 MG; Start 08/09/18 at 17:00 Famotidine (Pepcid) 20 mg DAILY PO Last administered on 08/10/18at 08:46; Admin Dose 20 MG; Start 08/10/18 at 09:00 Sevelamer Carbonate (Renvela) 800 mg WITH MEALS PO Last administered on 08/10/18at 08:44; Admin Dose 800 MG; Start 08/10/18 at 07:35 Epoetin [place]-epbx (Retacrit (Esrd)) 10,000 unit MoWeFr@1700 SC ; Start 08/10/18 at 17:00 Vancomycin HCl 250 ml @ 125 mls/hr ONCE IVPB Last administered on 08/10/18at 13:29; Admin Dose 125 MLS/HR; Start 08/10/18 at 13:00; Stop 08/10/18 at 23:59 Miscellaneous Information (*Rx Drug Level Order Reminder*) RANDOM VANCO LEVEL ... 0500 ONCE XX ; Start 08/13/18 at 05:00; Stop 08/13/18 at 05:01 MARCO LEIVA Aug 10, 2018 14:28
[2018-08-10] MEDS ORDERED: EPOETIN ALFA-EPBX (ESRD) 10,000 UNIT/ML VIAL SC SCH (17:00)
[2018-08-10] MEDS ORDERED: CA CHLORIDE 10% 10 ML SYRINGE ONE ×2 (18:24)
[2018-08-10] MEDS ORDERED: MAGNESIUM SULFATE 1 GM/D5W 100 ML ONE (18:26)
[2018-08-10] MEDS ORDERED: LEVOFLOXACIN 250MG/D5W (PMX) 50 ML IVPB SCH (18:30)
--- NOTE | 2018-08-10 19:21 | QN ---
Documentation Comment Emergency medicine consultation note: This is a 58-year-old man with end-stage renal disease, hemodialysis dependent, history of PA, diabetes mellitus, drug abuse I was called to see for JASS SELBY. He was undergoing hemodialysis when he lost pulses and stopped breathing. Endotracheal Intubation by me: Pre assessment performed. Pre-oxygenation performed with 100% oxygen RSI: Performed w/o complication or hypoxic events. Medications as ordered. Blade: 4.0 Bart ET Tube: 7.5 cm Depth: 20 cm at the lip Intubation confirmed by colorimetric CO2, equal breath sounds, quiet over the stomach. PRUDENCIO WALTON MD Aug 10, 2018 19:21
--- NOTE | 2018-08-10 19:40 | DES ---
Date/Time of Note Date/Time of Note DATE: 08/10/18 TIME: 19:36 Discharge/ Summary Admission/Discharge Info Admit Date/Time Aug 08, 2018 at 07:17 Date/Time August 10, 2018 Final Diagnosis Cardiopulmonary failure secondary to V. fib, end-stage renal disease, debility, opiate abuse, rhabdomyolysis, diabetes Preliminary Cause of Cardiopulmonary failure secondary to V. fib, end-stage renal disease, debility, opiate abuse, rhabdomyolysis, diabetes Hospital Course Patient is a 58-year-old male with a history of end-stage renal disease, debility, diabetes, opiate abuse. Patient presents with fall and rhabdomyolysis as well as electrolytes disturbance secondary to renal disease, patient required emergent dialysis. Patient went into V. fib and became encephalopathic, patient had ACLS for 1 hour with multiple rounds of epinephrine, defibrillation as well as amiodarone. Patient ultimately went into asystole and was pronounced at 1935. Pending Labs/Cultures Laboratory Tests Test 08/09/18 20:52 08/10/18 02:23 08/10/18 05:00 08/10/18 08:50 Bedside 139 125 120 Glucose mg/dL (70-220) mg/dL (70-220) mg/dL (70-220) White Blood 12.6 Count 10^3/ul (4.8-1 0.8) Red Blood 3.11 Count 10^6/ul (4.70- 6.10) Hemoglobin 8.6 g/dl (14.0-18. 0) Hematocrit 28.8 % (42.0-52.0) Mean 92.6 Corpuscular fl (82.0-101.0 Volume ) Mean 27.7 Corpuscular pg (29.0-33.0) Hemoglobin Mean 29.9 Corpuscular g/dl (32.0-37. Hemoglobin Conc 0) ent Red Cell 15.7 Distribution % (11.5-14.5) Width Platelet Count 276 10^3/UL (140-4 15) Mean Platelet 8.8 Volume fl (7.4-10.4) Immature 0.600 Granulocytes % % (0.001-0.429 ) Neutrophils % 85.1 % (39.0-77.0) Lymphocytes % 4.5 % (15.0-51.0) Monocytes % 9.0 % (0.0-11.0) Eosinophils % 0.4 % (0.0-7.0) Basophils % 0.4 % (0.0-2.0) Nucleated Red 0.0 Blood Cells % /100WBC (0.0-0 .0) Immature 0.080 Granulocytes # 10^3/ul (0.0-0 .031) Neutrophils # 10.7 10^3/ul (1.6-7 .5) Lymphocytes # 0.6 10^3/ul (0.8-2 .9) Monocytes # 1.1 10^3/ul (0.3-0 .9) Eosinophils # 0.1 10^3/ul (0.0-0 .5) Basophils # 0.1 10^3/ul (0.0-0 .1) Nucleated Red 0.0 Blood Cells # 10^3/ul (0.0-0 .0) Sodium Level 141 mmol/L (135-14 4) Potassium 5.2 Level mmol/L (3.5-5. 1) Chloride Level 97 mmol/L (97-110 ) Carbon Dioxide 28 Level mmol/L (21-31) Anion Gap 16 (5-13) Blood Urea 31 Nitrogen mg/dl (7-20) Creatinine 5.16 mg/dl (0.61-1. 24) Est Glomerular 12 Filtrat mL/min (>60) Rate mL/min Glucose Level 135 mg/dl (70-220) Calcium Level 8.5 mg/dl (8.4-10. 2) Phosphorus 7.9 Level mg/dl (2.5-4.9 ) Magnesium 2.4 Level mg/dl (1.7-2.5 ) Random 11.8 ug/ml Vancomycin Level Test 08/10/18 11:43 08/10/18 17:26 08/10/18 18:09 Bedside 206 135 Glucose mg/dL (70-220) mg/dL (70-220) White Blood 15.5 Count 10^3/ul (4.8-1 0.8) Red Blood 3.16 Count 10^6/ul (4.70- 6.10) Hemoglobin 8.9 g/dl (14.0-18. 0) Hematocrit 29.2 % (42.0-52.0) Mean 92.4 Corpuscular fl (82.0-101.0 Volume ) Mean 28.2 Corpuscular pg (29.0-33.0) Hemoglobin Mean 30.5 Corpuscular g/dl (32.0-37. Hemoglobin Conc 0) ent Red Cell 15.8 Distribution % (11.5-14.5) Width Platelet Count 280 10^3/UL (140-4 15) Mean Platelet 8.7 Volume fl (7.4-10.4) Immature 0.700 Granulocytes % % (0.001-0.429 ) Neutrophils % 87.6 % (39.0-77.0) Lymphocytes % 3.0 % (15.0-51.0) Monocytes % 8.0 % (0.0-11.0) Eosinophils % 0.3 % (0.0-7.0) Basophils % 0.4 % (0.0-2.0) Nucleated Red 0.0 Blood Cells % /100WBC (0.0-0 .0) Immature 0.110 Granulocytes # 10^3/ul (0.0-0 .031) Neutrophils # 13.6 10^3/ul (1.6-7 .5) Lymphocytes # 0.5 10^3/ul (0.8-2 .9) Monocytes # 1.2 10^3/ul (0.3-0 .9) Eosinophils # 0.1 10^3/ul (0.0-0 .5) Basophils # 0.1 10^3/ul (0.0-0 .1) Nucleated Red 0.0 Blood Cells # 10^3/ul (0.0-0 .0) Phosphorus 4.6 Level mg/dl (2.5-4.9 ) Magnesium 2.2 Level mg/dl (1.7-2.5 ) MARCO LEIVA Aug 10, 2018 19:40
== END 2018-08-10 19:35 | disposition expired | DRG 871 ==
LOC: E/R 05:13 → ICU 07:17 → 6WM 08-10 18:56 → ICU 08-10 19:15
PROVIDERS: ADMIT Family Medicine; ATTEND Internal Medicine
PROC: 5A1D70Z Performance of Urinary Filtration, Intermittent, Less than 6 Hours Per Day (ICD-10-PCS; principal; 2018-08-08)
PROC: 06HM33Z Insertion of Infusion Device into Right Femoral Vein, Percutaneous Approach (ICD-10-PCS; 2018-08-08)
PROC: 0BH17EZ Insertion of Endotracheal Airway into Trachea, Via Natural or Artificial Opening (ICD-10-PCS; 2018-08-10)
DX: A41.9 Sepsis, unspecified organism (principal); N18.6 End stage renal disease; I21.A1 Myocardial infarction type 2; G92 Toxic encephalopathy; G93.40 Encephalopathy, unspecified; M62.82 Rhabdomyolysis; I46.9 Cardiac arrest, cause unspecified; E11.22 Type 2 diabetes mellitus with diabetic chronic kidney disease; Z99.2 Dependence on renal dialysis; Z72.0 Tobacco use; E87.5 Hyperkalemia; D64.9 Anemia, unspecified; Z95.1 Presence of aortocoronary bypass graft; E78.5 Hyperlipidemia, unspecified; R00.8 Other abnormalities of heart beat; M54.9 Dorsalgia, unspecified; Z91.81 History of falling; F11.10 Opioid abuse, uncomplicated
CPT/HCPCS: 31500; 36415; 36592; 70450; 71045; 80048; 80053; 80202; 82550; 82553; 82803; 82962; 83036; 83605; 83690; 83735; 84100; 84484; 85025; 86706; 87081; 87340; 90935; 92950; 93005; 93306; 94664; 96365; 96368; 96375; 96376; J0171; J0282; J0692; J1170; J1644; J1815; J1956; J2001; J2270; J3370; J3475; J7030; J7060; J7070; P9047; Q5105